=== PATIENT | male | born 1980 | race Caucasian/White ===

== ENCOUNTER 2017-07-09 20:22 | Observation (INO) | payer OTHER ==
--- NOTE | 2017-07-09 20:51 | ED ---
General Adult HPI - General Chief complaint: Psychiatric Symptoms Stated complaint: Mental Health Eval Time Seen by Provider: 07/09/17 20:42 Source: patient, RN notes reviewed Mode of arrival: ambulatory Limitations: no limitations - History of Present Illness Initial comments: 47-year-old male presenting for evaluation of suicidal ideation. Patient has history of bipolar depression, he was recently admitted for suicidal thoughts and depression proximally 3-4 weeks ago. He states he's had worsening thoughts over the past several days including thoughts of shooting himself with a gun. He denies any ingestion today. He does not use drugs or alcohol. He has been taking his medications as prescribed he has additional psychiatric history including panic disorder. He states he has felt quite anxious as well. Denies any physical complaints. - Related Data Allergies Allergy/AdvReac Type Severity Reaction Status Date / Time No Known Allergies Allergy Verified 07/09/17 20:30 Review of Systems ROS Statement: Those systems with pertinent positive or pertinent negative responses have been documented in the HPI. ROS Other: All systems not noted in ROS Statement are negative. Past Medical History Past Medical History: No Reported History History of Any Multi-Drug Resistant Organisms: None Reported Past Surgical History: No Surgical Hx Reported Past Psychological History: Anxiety, Bipolar, Depression, Panic Disorder Smoking Status: Never smoker Past Alcohol Use History: None Reported Past Drug Use History: None Reported General Exam Limitations: no limitations General appearance: alert, in no apparent distress Head exam: Present: atraumatic, normocephalic Eye exam: Present: normal appearance, PERRL ENT exam: Present: normal exam Neck exam: Present: normal inspection. Absent: tenderness, meningismus Respiratory exam: Present: normal lung sounds bilaterally. Absent: respiratory distress, wheezes Cardiovascular Exam: Present: regular rate, normal rhythm GI/Abdominal exam: Present: soft. Absent: distended, tenderness Extremities exam: Present: normal inspection, full ROM Neurological exam: Present: alert, oriented X3, CN II-XII intact. Absent: motor sensory deficit Psychiatric exam: Present: anxious, flat affect, suicidal ideation Skin exam: Present: warm, dry, intact Course Vital Signs 07/09/17 07/09/17 20:26 23:19 Temperature 97.7 F Pulse Rate 113 H 96 Respiratory 20 Rate Blood Pressure 177/103 169/91 O2 Sat by Pulse 96 Oximetry Medical Decision Making - Medical Decision Making Patient is evaluated by EPS, patient does need for inpatient psychiatric treatment, he will require transfer to an outside hospital as he is a resident of [facility]. Laboratory studies are obtained prior to transfer, there is significant abnormalities in his labs including white blood cell count 18.9, platelets of 600. Hypercalcemia of 11.3. Mild elevation in AST and ALT. Urinalysis shows 13 RBCs, chest x-ray negative for focal pneumonia. Leukocytosis and thrombocytosis may be reactive, there is no source of infection identified. Given these significant lab abnormalities patient will be admitted medically, he will be given IV hydration for hypercalcemia, laboratory studies will be repeated in the morning. Patient will have a suicide sitter, and will be evaluated by psychiatry given his suicidal ideation. Patient is agreeable with plan. - Lab Data Result diagrams: 07/09/17 22:29 07/09/17 22:29 Lab Results 07/09/17 07/09/17 07/09/17 Range/Units 22:15 22:29 22:29 WBC 18.9 H (3.8-10.6) k/uL RBC 5.38 (4.30-5.90) m/uL Hgb 15.1 (13.0-17.5) gm/dL Hct 46.5 (39.0-53.0) % MCV 86.4 (80.0-100.0) fL MCH 28.1 (25.0-35.0) pg MCHC 32.5 (31.0-37.0) g/dL RDW 13.3 (11.5-15.5) % Plt Count 600 H (150-450) k/uL Neutrophils % 69 % Lymphocytes % 25 % Monocytes % 4 % Eosinophils % 1 % Basophils % 1 % Neutrophils # 13.0 H (1.3-7.7) k/uL Lymphocytes # 4.8 (1.0-4.8) k/uL Monocytes # 0.7 (0-1.0) k/uL Eosinophils # 0.1 (0-0.7) k/uL Basophils # 0.1 (0-0.2) k/uL Sodium 139 (137-145) mmol/L Potassium 4.6 (3.5-5.1) mmol/L Chloride 99 (98-107) mmol/L Carbon Dioxide 25 (22-30) mmol/L Anion Gap 15 mmol/L BUN 14 (9-20) mg/dL Creatinine 0.90 (0.66-1.25) mg/dL Est GFR (MDRD) Af Amer >60 (>60 ml/min/1.73 sqM) Est GFR (MDRD) Non-Af >60 (>60 ml/min/1.73 sqM) Glucose 199 H (74-99) mg/dL Calcium 11.3 H (8.4-10.2) mg/dL Total Bilirubin 0.9 (0.2-1.3) mg/dL AST 61 H (17-59) U/L ALT 79 H (21-72) U/L Alkaline Phosphatase 97 (38-126) U/L Total Protein 9.0 H (6.3-8.2) g/dL Albumin 5.1 H (3.5-5.0) g/dL Urine Color Yellow Urine Appearance Clear (Clear) Urine pH 6.0 (5.0-8.0) Ur Specific [place] 1.019 (1.001-1.035) Urine Protein 2+ H (Negative) Urine Glucose (UA) Negative (Negative) Urine Ketones Negative (Negative) Urine Blood Small H (Negative) Urine Nitrite Negative (Negative) Urine Bilirubin Negative (Negative) Urine Urobilinogen <2.0 (<2.0) mg/dL Ur Leukocyte Esterase Negative (Negative) Urine RBC 13 H (0-5) /hpf Urine WBC 2 (0-5) /hpf Ur Squamous Epith Cells 1 (0-4) /hpf Hyaline Casts 5 H (0-2) /lpf Urine Mucus Rare H (None) /hpf Urine Opiates Screen Not Detected (NotDetected) Ur Oxycodone Screen Not Detected (NotDetected) Urine Methadone Screen Not Detected (NotDetected) Ur Propoxyphene Screen Not Detected (NotDetected) Ur Barbiturates Screen Not Detected (NotDetected) U Tricyclic Antidepress Not Detected (NotDetected) Ur Phencyclidine Scrn Not Detected (NotDetected) Ur Amphetamines Screen Not Detected (NotDetected) U Methamphetamines Scrn Not Detected (NotDetected) U Benzodiazepines Scrn Not Detected (NotDetected) Urine Cocaine Screen Not Detected (NotDetected) U Marijuana (THC) Screen Not Detected (NotDetected) Disposition Clinical Impression: Depression, Suicidal ideation, Leukocytosis, Hypercalcemia Disposition: ADMITTED IP TO THIS [facility] Condition: Stable Referrals: None,Stated [Primary Care Provider] - 1-2 days Decision to Admit Reason: Admit from EC Decision Date: 07/09/17 Decision Time: 23:47
[2017-07-09] MEDS ORDERED: LORazepam 1 MG TAB PO STA (22:19)
[2017-07-09 22:40] LABS: Basophils # (A) 0.1 k/uL (0-0.2); Basophils % (A) 1 %; Eosinophils # (A) 0.1 k/uL (0-0.7); Eosinophils % (A) 1 %; HCT 46.5 % (39.0-53.0); HGB 15.1 gm/dL (13.0-17.5); Lymphocytes # (A) 4.8 k/uL (1.0-4.8); Lymphocytes % (A) 25 %; MCH 28.1 pg (25.0-35.0); MCHC 32.5 g/dL (31.0-37.0); MCV 86.4 fL (80.0-100.0); Monocytes # (A) 0.7 k/uL (0-1.0); Monocytes % (A) 4 %; Neutrophils % (A) 69 %; Platelet Count 600 k/uL (150-450); RBC 5.38 m/uL (4.30-5.90); RDW 13.3 % (11.5-15.5); WBC 18.9 k/uL (3.8-10.6)
[2017-07-09 22:42] LABS: Appearance,Urine Clear (Clear); Bilirubin,Urine Negative (Negative); Blood,Urine Small (Negative); Color,Urine Yellow; Glucose,Urine (UA) Negative (Negative); Hyaline Casts,Urine 5 /lpf (0-2); Ketones,Urine Negative (Negative); Leukocyte Esterase,Urine Negative (Negative); Mucus,Urine Rare /hpf; Protein,Urine 2+ (Negative); RBC,Urine 13 /hpf (0-5); Specific Gravity,Urine 1.019 (1.001-1.035); Squamous Epithelial Cell,Urine 1 /hpf (0-4); Urobilinogen,Urine <2.0 mg/dL (<2.0); WBC,Urine 2 /hpf (0-5)
[2017-07-09 22:46] LABS: Amphetamine Screen,Urine Not Detected (NotDetected); Barbiturate Screen,Urine Not Detected (NotDetected); Benzodiazepines Screen,Urine Not Detected (NotDetected); Cocaine Screen,Urine Not Detected (NotDetected); Methadone Screen, Urine Not Detected (NotDetected); Opiate Screen,Urine Not Detected (NotDetected); Oxycodone Screen, Urine Not Detected (NotDetected); Phencyclidine Screen,Urine Not Detected (NotDetected); Tricyclic Antidepressant,Urine Not Detected (NotDetected); Urn Cannabinoid Scrn Not Detected (NotDetected)
[2017-07-09 22:52] LABS: ALT 79 U/L (21-72); AST 61 U/L (17-59); Albumin 5.1 g/dL (3.5-5.0); Alkaline Phosphatase 97 U/L (38-126); Anion Gap 15 mmol/L; Blood Urea Nitrogen 14 mg/dL (9-20); Calcium 11.3 mg/dL (8.4-10.2); Carbon Dioxide 25 mmol/L (22-30); Chloride 99 mmol/L (98-107); Glucose 199 mg/dL (74-99); Potassium 4.6 mmol/L (3.5-5.1); Sodium 139 mmol/L (137-145); Total Bilirubin 0.9 mg/dL (0.2-1.3)
--- NOTE | 2017-07-09 23:40 | XR ---
EXAMINATION TYPE: XR chest 2V DATE OF EXAM: 07/09/2017 COMPARISON: NONE HISTORY: Altered mental status TECHNIQUE: Frontal and lateral views of the chest are obtained. FINDINGS: Heart and mediastinum are normal. Lungs are clear. Diaphragm is normal. Bony thorax is int act. Pulmonary vascularity is normal. IMPRESSION: Normal chest
[2017-07-09] MEDS ORDERED: NALOXONE 0.4 MG/ML 1 ML VIAL IV PRN (23:48)
[2017-07-09] MEDS ORDERED: IBUPROFEN 400 MG TAB PO PRN (23:48)
[2017-07-10] MEDS: SODIUM CHLORIDE 0.9% 1,000 ML IV SCH ×3 (00:09→20:05)
[2017-07-10 01:19] LABS: Glucose,Whole Blood 168 mg/dL (75-99)
[2017-07-10 01:31] VITALS: BMI 43.4
[2017-07-10 07:15] LABS: Basophils # (A) 0.1 k/uL (0-0.2); Basophils % (A) 1 %; Eosinophils # (A) 0.2 k/uL (0-0.7); Eosinophils % (A) 2 %; HCT 44.3 % (39.0-53.0); HGB 14.2 gm/dL (13.0-17.5); Lymphocytes # (A) 4.6 k/uL (1.0-4.8); Lymphocytes % (A) 35 %; MCH 27.5 pg (25.0-35.0); MCV 86.1 fL (80.0-100.0); Mean Platelet Volume 5.9; Monocytes # (A) 0.6 k/uL (0-1.0); Monocytes % (A) 5 %; Neutrophils # (A) 7.3 k/uL (1.3-7.7); Neutrophils % (A) 56 %; Platelet Count 399 k/uL (150-450); RBC 5.15 m/uL (4.30-5.90); RDW 13.1 % (11.5-15.5); WBC 13.1 k/uL (3.8-10.6)
[2017-07-10 07:34] LABS: ALT 66 U/L (21-72); AST 53 U/L (17-59); Albumin 4.1 g/dL (3.5-5.0); Alkaline Phosphatase 76 U/L (38-126); Anion Gap 13 mmol/L; Blood Urea Nitrogen 15 mg/dL (9-20); Calcium 9.9 mg/dL (8.4-10.2); Carbon Dioxide 27 mmol/L (22-30); Chloride 100 mmol/L (98-107); Glucose 182 mg/dL (74-99); Potassium 4.3 mmol/L (3.5-5.1); Sodium 140 mmol/L (137-145); Total Bilirubin 0.7 mg/dL (0.2-1.3); Total Protein 7.4 g/dL (6.3-8.2)
[2017-07-10 08:49] VITALS: RESP 18
[2017-07-10] MEDS: LORazepam 2 MG/ML INJ IV PRN ×2 (13:44→19:08)
[2017-07-10 15:26] VITALS: TEMP 98.7
--- NOTE | 2017-07-10 18:40 | HP ---
HISTORY AND PHYSICAL HISTORY AND PHYSICAL AND DISCHARGE SUMMARY: CHIEF COMPLAINTS: Suicidal ideations. HISTORY OF PRESENT ILLNESS: This 37-year-old gentleman with past history of hypertension, diabetes mellitus, anxiety, bipolar, depression being followed by primary physician was visiting [facility] with friends and the patient apparently had suicidal ideations and was admitted for evaluation and treatment. On admission the patient was noted to have multiple abnormalities including elevated WBCs and hypercalcemia. The patient was probably dehydrated and after hydration the patient is improving significantly. There is no history of fever, rigors. No headache, loss of consciousness, chest pain, palpitations, hematochezia or melena at this time. PAST MEDICAL HISTORY: Diabetes, hypertension, history of anxiety, bipolar depression. MEDICATIONS: Prior to admission include Lamictal 70 mg p.o. b.i.d., Lexapro 10 mg p.o. daily, Abilify 20 mg p.o. daily. ALLERGIES: None. FAMILY HISTORY: No history of heart disease or strokes in the family. SOCIAL HISTORY: Previous history of smoking. No history of current smoking or alcohol intake. REVIEW OF SYSTEMS: ENT: No diminished hearing or vision. CARDIOVASCULAR: As mentioned earlier. RESPIRATORY: As mentioned earlier. GI: As mentioned earlier. : No dysuria. NERVOUS SYSTEM: As mentioned earlier. ALLERGY/IMMUNOLOGY: No asthma or hayfever. MUSCULOSKELETAL: As mentioned earlier. HEMATOLOGY: No history of anemia. ENDOCRINE: History of diabetes. CONSTITUTIONAL: As mentioned earlier. DERMATOLOGY: Negative. RHEUMATOLOGY: Negative. PSYCHIATRY: As mentioned earlier. PHYSICAL EXAMINATION: alert and oriented x3. Pulse 101, blood pressure 100/84, respiration 18, temperature 98.2, pulse ox 94% room air. HEENT: Conjunctivae normal. Oral mucosa moist. NECK: No jugular venous distention. No carotid bruit. No lymph node enlargement. CARDIOVASCULAR: S1, S2. No S3, no S4. RESPIRATORY: Breath sounds diminished in the bases. No rhonchi, no crackles. ABDOMEN: Soft, nontender. No mass palpable. LEGS: No edema, no swelling. NERVOUS SYSTEM: Higher functions as mentioned. Cranial nerves II through XII grossly intact. No focal motor deficits. LYMPHATICS: No lymphadenopathy in the neck, axillae, groin. SKIN: No ulcer, rash, bleeding. LABS: WBC 18.9, 13.1. Other labs are noted as earlier. Glucose 182. ASSESSMENT: 1. Depression with suicidal ideations. 2. Possible dehydration present on admission. 3. Increased WBC, possibly reactive. 4. Hypercalcemia secondary to dehydration, improved. 5. Increased AST and ALT. 6. Hypertension. 7. Diabetes mellitus type 2. 8. History of anxiety, bipolar depression, panic disorder. 9. Remote history of nicotine dependence. 10.Obesity with body mass of 43.5. RECOMMENDATIONS AND DISCUSSION: This 37-year-old gentleman who presented with multiple complex medical issues, at this time I recommend to continue current management and symptomatic treatment. Otherwise I would recommend resume the home medications. Psychiatry consultation and inpatient psych transfer. Repeat labs. We will follow the patient closely and prognosis guarded. Discussed with the patient who understands. MMALENL / IJN: [id number] /
[2017-07-10] MEDS ORDERED: hydrALAZINE HCL 20 MG/ML 1 ML VIAL IVP PRN (18:46)
[2017-07-10] MEDS ORDERED: cloNIDine HCL 0.1 MG TAB PO PRN (18:50)
[2017-07-10 20:28] LABS: Glucose,Whole Blood 191 mg/dL (75-99)
[2017-07-10 20:37] VITALS: BP 141/69; PULSE 89
[2017-07-10] MEDS ORDERED: cloNIDine HCL 0.1 MG TAB PO SCH (21:00)
[2017-07-10] MEDS ORDERED: INSULIN ASPART 100 UNIT/ML 1 ML 10 ML VIAL SQ SCH (21:00)
--- NOTE | 2017-07-10 23:28 | CONS ---
CONSULTATION CONSULT DATE: July 10, 2017. REASON FOR CONSULTATION: Suicidal ideation. IDENTIFYING DATA AND HISTORY OF PRESENT ILLNESS: The patient is a 37-year-old white single male on Social Security Disability for the last couple of years, has been living on his own, presented to the emergency room for suicidal ideation. The patient has history of bipolar depression and anxiety disorder for at least 20 years. He stated that he was recently discharged 2 or 3 weeks ago from [facility], but he does not feel that he is getting better. The patient stated that over the past couple of days, he has been struggling with suicidal ideation with a plan of shooting himself with a gun. He denied any psychotic features. According to him, he was discharged from [facility] on Abilify, Lexapro and Lamictal; however, he is not aware about what is it the dose and how often he has to take it. The patient also stated that he has been having panic attack and anxiety most of his life since her early teenage. Regarding past psychiatric history, he reports at least 10 inpatient psych hospitalizations. The 1st admission was at age 14 or 15 and the last one was 2 or 3 weeks ago. He was diagnosed with bipolar depression and panic attack. According to him, he was on lithium for more than 4 or 5 years and it was very effective. However, they discontinued lithium and put him on Abilify. He denied having any side effects from the lithium. There is no previous psychotic symptom. There is no previous suicidal attempt, but it seems that he has chronic suicidal ideation for at least 12 years. MEDICAL HISTORY: There is abnormality in his lab, including the white blood cell count is 18.9, platelets 600. Calcium is 11.3. Mild elevation in his liver enzyme. Urinalysis shows red blood cells. Chest x-ray is negative. SUBSTANCE ABUSE HISTORY: Patient denied any illicit drug history. Family history of psychiatric illness. Sister has a diagnosis of bipolar disorder. Also a couple of family members on his mother's side diagnosed with schizoaffective versus bipolar disorder. LEGAL HISTORY: He denied. SOCIAL HISTORY: The patient has 5 brothers and 6 sisters. He graduated from high school. He used to work in construction. He has been on disability for mental illness for at least a couple of years. He is his own guardian and he is living on his own. He never . He does not have any children. MENTAL STATUS: Appearance and attitude: The patient is dressed in hospital gown. Poor grooming, overweight, not shaved. He did make good eye contact. Behavior: There is no psychomotor agitation. Speech and language: Speech is normal in volume and rate and coherent. Thought process is tangential, but there is no looseness of association. Thought content: He denied any auditory or visual hallucination, but he stated that he is still feeling suicidal with a plan to shoot himself with a gun. Cognitive function: Patient was alert, oriented to person, today's date, location, mood and affect. Stated mood, "anxious and depressed." Affect is constricted. Insight and judgment are very limited. DIAGNOSES: 1. Bipolar disorder, depressed, without psychotic features. 2. History of panic attack without agoraphobia. PLAN: We do recommend to transfer the patient to the mental health unit. The patient did agree to sign himself in on a voluntary basis to resolve his suicidal ideation and stabilize his medication. MMODL / IJN: [id number] /
== END 2017-07-10 21:01 ==
LOC: EC 20:22 → 5MS5E 23:48
PROVIDERS: ADMIT Hospitalist; ATTEND Hospitalist
DX: F31.9 Bipolar disorder, unspecified (principal); R45.851 Suicidal ideations; D72.829 Elevated white blood cell count, unspecified; E83.52 Hypercalcemia; I10 Essential (primary) hypertension; E11.9 Type 2 diabetes mellitus without complications; F41.9 Anxiety disorder, unspecified; F41.0 Panic disorder [episodic paroxysmal anxiety]; E66.9 Obesity, unspecified; Z68.41 Body mass index [BMI] 40.0-44.9, adult; Z87.891 Personal history of nicotine dependence; R74.0 Nonspecific elevation of levels of transaminase and lactic acid dehydrogenase [LDH]; D47.3 Essential (hemorrhagic) thrombocythemia; Z79.899 Other long term (current) drug therapy
CPT/HCPCS: 99285; 96376; 96374; 96375; 82075; 36415; 80053 ×2; 83735; 85025 ×2; 81001; 80306; 71046; G0378 ×2; J2060; J0360

== ENCOUNTER 2017-07-10 19:06 | Inpatient (IN) | payer MEDICAID, OTHER ==
[2017-07-10] MEDS ORDERED: MAG HYDROX/AL HYDROX/SIMETH 30 ML CUP PO PRN (21:10)
[2017-07-10] MEDS ORDERED: MAGNESIUM HYDROXIDE 2,400 MG/10 ML CUP PO PRN (21:10)
[2017-07-10] MEDS ORDERED: NICOTINE 14MG/24HR PATCH TRANSDERM SCH (21:15)
[2017-07-10] MEDS ORDERED: IBUPROFEN 400 MG TAB PO PRN (21:16)
[2017-07-10] MEDS ORDERED: cloNIDine HCL 0.1 MG TAB PO PRN (21:21)
[2017-07-10] MEDS: hydrOXYzine PAMOATE 25 MG CAP PO PRN (22:50)
[2017-07-10] MEDS: ACETAMINOPHEN TAB 325 MG TAB PO PRN (23:34)
[2017-07-11 07:18] LABS: Glucose,Whole Blood 151 mg/dL (75-99)
[2017-07-11] MEDS: INSULIN ASPART 100 UNIT/ML 1 ML 10 ML VIAL SQ SCH ×4 (08:29→20:22)
[2017-07-11] MEDS: cloNIDine HCL 0.1 MG TAB PO SCH ×2 (08:29→20:20)
[2017-07-11] MEDS: lamoTRIgine 25 MG TAB PO SCH ×2 (08:29→20:18)
[2017-07-11] MEDS: ESCITALOPRAM 10 MG TAB PO SCH (08:29)
[2017-07-11] MEDS: LORazepam 1 MG TAB PO PRN ×2 (08:29→16:47)
[2017-07-11 09:19] LABS: Albumin 4.2 g/dL (3.5-5.0); Bilirubin, Delta 0.4 mg/dL (0.0-0.2); Bilirubin,Unconjugated 0.5 mg/dL (0.0-1.1); Total Bilirubin 0.9 mg/dL (0.2-1.3); Total Protein 7.4 g/dL (6.3-8.2)
--- NOTE | 2017-07-11 10:15 | HP ---
HISTORY AND PHYSICAL DATE OF SERVICE: July 11, 2017 Please refer to my consultation report as I saw the patient on the medical floor. IDENTIFYING DATA AND HISTORY OF PRESENT ILLNESS: The patient is a 47 -year-old male in living on his own and he is on social security income for the last couple of years. Presented to the emergency room with depression and suicidal ideation. The patient stated that he has been depressed for 3- 4 weeks, but it has been getting worse over the last couple of days and he was having suicidal plan to shoot himself with a gun. As his labs were abnormal he was admitted to the medical unit to stabilize him medically. Today when I saw the patient, he stated that he is still feeling tired and fatigued, hopeless, helpless. No ambition or motivation. He endorses poor concentration, suicidal ideation with plan to shoot himself if he will be discharged from the hospital. He denies any psychotic features. He denied any manic features. His current psychotropic medication with Abilify 20 mg daily. Lamictal 75 mg twice a day. Lexapro 10 mg daily. PAST PSYCHIATRIC HISTORY: He did report at least 10 inpatient psychiatric hospitalizations. Last hospitalization was just 2 weeks ago at [facility]. There is no suicide attempts. However, he did state he has been having chronic suicidal ideation since early teens. SUBSTANCE ABUSE HISTORY: He denied any illicit drug use. FAMILY HISTORY: Of psychiatric illness: Sister diagnosed with bipolar. Couple of family members on his mother's side, diagnosed with schizoaffective disorder. MEDICAL HISTORY: Status post dehydration, hypertension, diabetes type 2, obesity, increased liver enzyme. SOCIAL HISTORY: The patient is living on his own. He is his own guardian. He is on social security disability. Never . No children. MENTAL STATUS EXAMINATION: Patient is morbidly obese, male, wearing hospital gown. Poor grooming, poor hygiene, disheveled and unkept, avoiding eye contact. Speech is limited in productivity. His thought process is tangential but there is no loose association. He denied any psychotic features, but he stated that he has been severely depressed and suicidal with specific plan. The patient is alert and oriented to person, location and today date. Stated mood "just tired". Affect is constricted. Insight and judgment are limited. Intellectual function is below average. DIAGNOSES: 1. Bipolar disorder, depressed, severe without psychotic feature. 2. History of panic attack without agoraphobia. PLAN: The patient was admitted to the mental health unit for safety, I will restart him back on his psychotropic medication, Abilify, Lexapro and Lamictal. The patient will participate in group therapy as tolerated. restuarant crew worker to assist in collateral information and aftercare. We will monitor his vital signs and his blood sugar. Estimated length of stay is 3-4 days. MMALENL / JORGEN: [id number] /
[2017-07-11] MEDS: hydrOXYzine PAMOATE 25 MG CAP PO PRN ×2 (12:02→20:20)
[2017-07-11 12:33] LABS: Glucose,Whole Blood 203 mg/dL (75-99)
[2017-07-11 17:12] LABS: Glucose,Whole Blood 138 mg/dL (75-99)
[2017-07-11 17:54] LABS: Hemoglobin A1C 8.1 % (4.0-6.0)
[2017-07-11 19:56] LABS: Glucose,Whole Blood 192 mg/dL (75-99)
--- NOTE | 2017-07-11 21:44 | CONS ---
CONSULTATION DATE OF SERVICE: 07/11/2017. IDENTIFYING DATA: The patient is seen on the psych unit. REASON FOR CONSULTATION: Medical management, history of diabetes, hypertension. HISTORY OF PRESENT ILLNESS: The patient is a 37-year-old male patient who is admitted to the psych unit for bipolar depression without psychotic features and panic disorder. PAST MEDICAL HISTORY: The patient has past medical history that is significant for history of type 2 diabetes, hypertension, history of obesity, increased liver enzymes. PAST SURGICAL HISTORY: Not significant. SOCIAL HISTORY: Patient has no history of illicit drug abuse. FAMILY HISTORY: Significant for bipolar disorder in sister. REVIEW OF SYSTEMS: CONSTITUTIONAL: The patient denies fevers, chills. HEENT: No deafness or vision loss. RESPIRATORY: No shortness of breath or cough. CARDIOVASCULAR: No chest pain or palpitations. ABDOMEN: No nausea, vomiting, diarrhea. GENITOURINARY: No dysuria, no hematuria. EXTREMITIES: No muscle or joint deformities. NEUROLOGIC EXAMINATION: No dizziness, lightheadedness, or any headaches. PHYSICAL EXAMINATION: Patient is alert but is sleepy. Claims that he had just fallen asleep. VITAL SIGNS: Temperature 98.6, pulse 90, respiration 18, blood pressure 165/84, O2 saturation fair. HEENT: Atraumatic, normocephalic. Pupils equal and react to light. Extraocular movements intact. Buccal mucosa is fair. NECK: Supple, no goiter or lymphadenopathy. JVD is negative. No carotid bruit heard. LUNGS: Clear to auscultate. No rales, rhonchi, or wheezes. HEART: Regular rate and rhythm without any murmurs or gallop rhythm. ABDOMEN: Soft, nontender, nondistended. Bowel sounds positive. EXTREMITIES: No edema, clubbing or cyanosis. Pulses are palpable 2+. NEUROLOGIC: The patient is awake, alert and oriented. No gross motor or sensory deficit. SKIN: Warm, dry and intact. LYMPHATICS: No enlarged lymph nodes in cervical or axillary area. LAB: Bilirubin 0.4, AST 74, triglycerides 196, ALT of 110. TSH 1.76, blood glucose 203. ASSESSMENT: 1. Uncontrolled diabetes. 2. Hypertension. 3. Mild transaminitis. PLAN: Continue patient on current home medications. Will follow liver enzymes and make recommendations if they remain elevated. Will continue home blood pressure medications. Will monitor blood sugars and make adjustments accordingly. Thank you. MMODL / IJN: [id number] /
[2017-07-12 06:36] LABS: Glucose,Whole Blood 135 mg/dL (75-99)
[2017-07-12] MEDS: INSULIN ASPART 100 UNIT/ML 1 ML 10 ML VIAL SQ SCH ×4 (07:39→20:16)
[2017-07-12] MEDS: lamoTRIgine 25 MG TAB PO SCH ×2 (08:58→20:08)
[2017-07-12] MEDS: cloNIDine HCL 0.1 MG TAB PO SCH ×2 (08:58→20:09)
[2017-07-12] MEDS: ESCITALOPRAM 10 MG TAB PO SCH (08:58)
[2017-07-12] MEDS: LORazepam 1 MG TAB PO PRN (08:59)
[2017-07-12 12:52] LABS: Glucose,Whole Blood 160 mg/dL (75-99)
--- NOTE | 2017-07-12 13:45 | P.PN ---
Progress Note - Text Progress Note Date: 07/12/17 Pt has been too sleepy and I could not see him this AM. Has a long history of Bipolar disorder and was admitted here because of Depression and Suicide thoughts. Currently, he is not feeling suicidal. But, he is not feeling well, gets sleepy and feels his current meds are not working. He is on Abilify, Lexapro ans Lamictal. He was doing better on [place] and seroquel in the past and agreed for meds change. He was counseled about the FDA recommendations for Bipolar disorder. Has high lipids, FBS with high HgBA1C and normal renal function. Currently, he is sleepy and sluggish. Speech is spontaneous and goal directed, Mood is dull and affect is constricted in range. Denies hallucinations, delusional thinking, suicide and homicide thoughts. Sensorium is clear. A: Bipolar disorder, most recent episode, depression, moderate to severe. P: Change lexapro and Abilify to lithium and seroquel. Continue Lamictal. Check [place] Level etc later.
[2017-07-12] MEDS: LITHIUM CARBONATE ER 450 MG TABLET.ER PO SCH ×2 (16:40→23:14)
[2017-07-12 17:44] LABS: Glucose,Whole Blood 129 mg/dL (75-99)
[2017-07-12] MEDS: QUEtiapine 200 MG TAB PO SCH (20:08)
[2017-07-12 20:09] LABS: Glucose,Whole Blood 206 mg/dL (75-99)
[2017-07-13 06:35] LABS: Glucose,Whole Blood 135 mg/dL (75-99)
[2017-07-13] MEDS: INSULIN ASPART 100 UNIT/ML 1 ML 10 ML VIAL SQ SCH ×4 (07:32→20:53)
[2017-07-13] MEDS: LITHIUM CARBONATE ER 450 MG TABLET.ER PO SCH ×3 (08:04→23:05)
[2017-07-13] MEDS: lamoTRIgine 25 MG TAB PO SCH ×2 (08:04→20:09)
[2017-07-13] MEDS: cloNIDine HCL 0.1 MG TAB PO SCH ×2 (08:04→20:10)
[2017-07-13 09:19] LABS: Appearance,Urine Clear (Clear); Bilirubin,Urine Negative (Negative); Blood,Urine Negative (Negative); Color,Urine Yellow; Glucose,Urine (UA) Negative (Negative); Ketones,Urine Negative (Negative); Leukocyte Esterase,Urine Negative (Negative); PH, Urine 6.5 (5.0-8.0); Protein,Urine Negative (Negative); Specific Gravity,Urine 1.012 (1.001-1.035); Urobilinogen,Urine <2.0 mg/dL (<2.0)
--- NOTE | 2017-07-13 10:48 | P.PN ---
Progress Note - Text Progress Note Date: 07/13/17 Patient took his lithium last night and this morning and Seroquel last night in addition to Lamictal he is on. He did not have any adverse effects from either lithium or Seroquel. He said he slept well last night. This morning he is still in bed but he responded and talk to me in his room for evaluation. But he did not even respond to my questions or request yesterday morning when I tried to talk to him and so I had to see him in the afternoon. Patient does not attend all his groups and he was encouraged to attend the groups and learn better coping skills. He said he will attend the groups more regularly. This is a white ambulatory male who looks rather unkempt since he is poorly combed and unshaven. He tends to stay in his bed quite often. He does not socialize much. His speech is soft short and goal directed. His mood is dull and affect is rather constricted in range. He denies hallucinations and delusional thinking. He denies suicidal and homicidal ideas. But his energy seems to be quite low and he isolates himself. He is fairly well oriented with adequate memory concentration etc. Plan: Continue Seroquel 200 mg at bedtime, lithium 450 mg twice a day, Lamictal 75 mg twice a day. Continue groups and other therapy sessions. He is not ready to be discharged since he still isolates himself, does not attend to his basic needs and is still unstable.
[2017-07-13 12:40] LABS: Glucose,Whole Blood 154 mg/dL (75-99)
[2017-07-13 17:46] LABS: Glucose,Whole Blood 139 mg/dL (75-99)
[2017-07-13 19:49] LABS: Glucose,Whole Blood 196 mg/dL (75-99)
[2017-07-13] MEDS: QUEtiapine 200 MG TAB PO SCH (20:10)
[2017-07-14 06:10] LABS: Glucose,Whole Blood 145 mg/dL (75-99)
[2017-07-14] MEDS: INSULIN ASPART 100 UNIT/ML 1 ML 10 ML VIAL SQ SCH ×4 (07:42→20:16)
[2017-07-14] MEDS: cloNIDine HCL 0.1 MG TAB PO SCH ×2 (08:08→20:06)
[2017-07-14] MEDS: lamoTRIgine 25 MG TAB PO SCH ×2 (08:08→20:06)
[2017-07-14] MEDS: LITHIUM CARBONATE ER 450 MG TABLET.ER PO SCH ×3 (08:08→23:13)
--- NOTE | 2017-07-14 11:55 | P.PN ---
Progress Note - Text Progress Note Date: 07/14/17 Patient was sleeping when I called him for examination last 3 times. But he came into the office later on when I returned to the office. He says that he is not a morning person and usually tends to sleep until known or about 1:00. He does not socialize much except in the afternoon when he goes to the groups. He has been taking his lithium and Seroquel and does not have any adverse effects so far. He plans on returning home and his sister apparently will pick him up. He said he has about 4 shotguns and one or 2 handguns loves to [place] and fish with his brother etc. he continues to deny suicidal and homicidal ideas he is unshaven and looks rather unkempt. His speech is spontaneous and fluent and goal directed. But it is as short as possible. His mood is rather dull and affect is somewhat constricted in range. He denies hallucinations and delusional thinking. He denies suicidal and homicidal ideas. He is well oriented with adequate memory. Plan: Continue lithium 450 mg twice a day and Seroquel 200 mg at bedtime. Continue counseling and groups. sewage disposal worker has already contacted patient's sister regarding discharge plan. Continue hospitalization to make sure he is able to take care office basic needs.
[2017-07-14 12:24] LABS: Glucose,Whole Blood 150 mg/dL (75-99)
[2017-07-14 17:04] LABS: Glucose,Whole Blood 121 mg/dL (75-99)
[2017-07-14] MEDS: FLUTICASONE 50MCG/SPRAY NASAL 16GM EA NOSTRIL PRN (17:43)
[2017-07-14] MEDS: ACETAMINOPHEN TAB 325 MG TAB PO PRN (18:17)
[2017-07-14 19:59] LABS: Glucose,Whole Blood 173 mg/dL (75-99)
[2017-07-14] MEDS: QUEtiapine 200 MG TAB PO SCH (20:06)
[2017-07-15 06:24] LABS: Glucose,Whole Blood 145 mg/dL (75-99)
[2017-07-15] MEDS: LITHIUM CARBONATE ER 450 MG TABLET.ER PO SCH ×3 (08:00→23:04)
[2017-07-15] MEDS: lamoTRIgine 25 MG TAB PO SCH ×2 (08:00→20:02)
[2017-07-15] MEDS: cloNIDine HCL 0.1 MG TAB PO SCH ×2 (08:00→20:03)
[2017-07-15] MEDS: INSULIN ASPART 100 UNIT/ML 1 ML 10 ML VIAL SQ SCH ×4 (08:02→20:04)
[2017-07-15] MEDS: IBUPROFEN 400 MG TAB PO PRN (09:13)
--- NOTE | 2017-07-15 11:55 | P.PN ---
Progress Note - Text Progress Note Date: 07/15/17 Patient was seen for a follow up examination. He is alert and up and about today. He said he is a little anxious about going home. But he does not have any problem with that. Initially he was concerned about having a family session but eventually he settled down and has agreed to it. He says his gout is bothering him the great toe is hurting and would like to take something for it. He was counseled and he agreed to take colchicine. He takes his medicines attends groups sometimes and gets along okay with other people. Does not have any adverse effects. He is polite and cooperative. He does not show any psychomotor agitation or retardation. He is dressed in hospital gowns today stating that they are more comfortable for him. He continues to be unshaven and he says the hospital razors are dull and middle shaved or trim his pichardo when he gets home. His speech is spontaneous relevant and goal-directed. Mood is euthymic and affect is appropriate. He denies hallucinations, delusional thinking, suicidal and homicidal ideas. He is well oriented with adequate memory concentration etc. Plan: Continue Seroquel lithium and Lamictal. Start on colchicine for gout. Consider discharging him tomorrow.
[2017-07-15] MEDS: COLCHICINE 0.6 MG TAB PO SCH ×2 (12:03→20:02)
[2017-07-15 12:38] LABS: Glucose,Whole Blood 138 mg/dL (75-99)
[2017-07-15] MEDS ORDERED: QUEtiapine 100 MG TAB PO STA (13:45)
--- NOTE | 2017-07-15 13:51 | P.PN ---
Progress Note - Text Progress Note Date: 07/15/17 Patient came back to my office crying and tearful. He said he is too nervous and feels he is falling apart. He said he does not have any when necessary medication since his Ativan was discontinued as he was sleeping a lot. He feels he will deteriorate further if he goes home tomorrow. He was counseled and he agreed to get his Seroquel increased to 400 mg at bedtime and take a stat dose of Seroquel 100 mg now to help him to feel better. Orders were entered for him to get the updated medications.
[2017-07-15 14:30] VITALS: BMI 43.2
[2017-07-15 17:41] LABS: Glucose,Whole Blood 133 mg/dL (75-99)
[2017-07-15] MEDS: FLUTICASONE 50MCG/SPRAY NASAL 16GM EA NOSTRIL PRN (17:54)
[2017-07-15 19:54] LABS: Glucose,Whole Blood 139 mg/dL (75-99)
[2017-07-15] MEDS ORDERED: QUEtiapine 400 MG TAB PO SCH (21:00)
[2017-07-16 06:43] LABS: Glucose,Whole Blood 127 mg/dL (75-99)
--- NOTE | 2017-07-16 09:08 | P.PN ---
Progress Note - Text Progress Note Date: 07/16/17 Patient was seen for a follow-up examination. He was in bed when I called him. Prior to that he went and got his morning medications went for breakfast etc. He tends to stay in bed in the morning time and becomes active in the afternoon and evening. As noted earlier he had told me that he is not a morning person. He said extra medications he got yesterday afternoon and increased dose of Seroquel last night had helped him quite a bit. He did not have any adverse effects from increased dose of Seroquel. He was counseled and he agreed to. His Seroquel increased to 600 mg at bedtime today. This is a white rather obese ambulatory male who looks rather unkempt. He is polite and cooperative. He does not show any psychomotor agitation or retardation. His speech is fairly spontaneous and goal-directed. But it is rather short. His mood is dull to euthymic and affect is somewhat constricted in range. He denies current suicidal and homicidal ideas. He also denies hallucinations and delusional thinking. He is well oriented with good memory and concentration general fund of knowledge etc. Plan: Increase Seroquel to 600 mg at bedtime, continue lithium 450 mg twice a day and Lamictal 75 mg twice a day. Continue other medications for physical problems. Consider discharging him on Wednesday if he continues to do better.
[2017-07-16] MEDS: INSULIN ASPART 100 UNIT/ML 1 ML 10 ML VIAL SQ SCH ×4 (09:14→20:02)
[2017-07-16] MEDS: LITHIUM CARBONATE ER 450 MG TABLET.ER PO SCH ×3 (09:37→23:13)
[2017-07-16] MEDS: lamoTRIgine 25 MG TAB PO SCH ×2 (09:37→20:03)
[2017-07-16] MEDS: COLCHICINE 0.6 MG TAB PO SCH ×2 (09:37→20:03)
[2017-07-16] MEDS: cloNIDine HCL 0.1 MG TAB PO SCH ×2 (09:37→20:03)
[2017-07-16 12:55] LABS: Glucose,Whole Blood 174 mg/dL (75-99)
[2017-07-16] MEDS ORDERED: QUEtiapine 100 MG TAB PO STA (13:38)
[2017-07-16 17:35] LABS: Glucose,Whole Blood 145 mg/dL (75-99)
[2017-07-16 19:54] LABS: Glucose,Whole Blood 140 mg/dL (75-99)
[2017-07-16] MEDS: QUEtiapine 200 MG TAB PO SCH (20:03)
[2017-07-17 06:24] LABS: Glucose,Whole Blood 139 mg/dL (75-99)
[2017-07-17 06:44] VITALS: RESP 16
[2017-07-17] MEDS: LITHIUM CARBONATE ER 450 MG TABLET.ER PO SCH ×3 (08:40→23:05)
[2017-07-17] MEDS: cloNIDine HCL 0.1 MG TAB PO SCH ×2 (08:40→20:44)
[2017-07-17] MEDS: COLCHICINE 0.6 MG TAB PO SCH ×2 (08:40→20:43)
[2017-07-17] MEDS: lamoTRIgine 25 MG TAB PO SCH ×2 (08:40→20:44)
[2017-07-17] MEDS: INSULIN ASPART 100 UNIT/ML 1 ML 10 ML VIAL SQ SCH ×4 (08:41→21:27)
--- NOTE | 2017-07-17 11:35 | P.PN ---
Progress Note - Text Progress Note Date: 07/17/17 Interval History: Patient is a 37-year-old male who is being seen [place] [facility] [place]. Patient reports that with the increase in his Seroquel his sleep has improved and he is feeling less nervous and jumpy. He reports that he has been feeling less depressed and is no longer having any suicidal ideation. He reports that he is attempting to attend groups and activities and was in group this morning when I approached him. Patient reported no side effects from the increase in the Seroquel or from his other medications. Patient states his depression is improving. Mental Status: Appearance/Attitude: Patient is a hospital gown and appears slightly disheveled, makes in good eye contact and was cooperative. Behavior: Patient does not display any psychomotor agitation or retardation. Speech/Language: Patient's speech is spontaneous and of normal volume and rhythm and he is coherent. Thought Process: Patient was goal-directed, no circumstantial or tangential. Thought Content: Patient denied auditory or visual hallucinations and no delusions or paranoid ideation were elicited. Patient reports that his sleep is improved with the increase in Seroquel and he states he's feeling less nervous and jumpy. He reports that he is feeling less depressed as well and has been attempting to attend groups and activities. He reports his appetite is good. Patient reported no side effects from the medication. Suicidal/Homicidal Ideation: Patient denies any current suicidal or homicidal ideation. Sensorium/Cognition: Patient is alert and oriented to person, place, and time and his recent and remote memory were grossly intact. Mood/Affect: Patient states his mood is less depressed, he is feeling less nervous and jumpy and his affect is slightly blunted Insight/Judgment: Patient's insight and judgment are fair. Assessment: Patient reports improved sleep with the increase in Seroquel as well as his mood is less depressed and he is feeling less nervous and jumpy. He reports no racing thoughts and no suicidal ideation. Patient states that he is been attempting to attend groups and activities. He reported no complaints of side effects and none were noted on exam. Plan: Patient will continue on Seroquel at 600 mg at bedtime, lithium 450 mg twice a day and Lamictal 75 mg twice a day continues to require hospitalization to further stabilize his mood. A lithium level was ordered for tomorrow morning.
[2017-07-17] MEDS: IBUPROFEN 400 MG TAB PO PRN (11:44)
[2017-07-17 12:42] LABS: Glucose,Whole Blood 143 mg/dL (75-99)
[2017-07-17 17:36] LABS: Glucose,Whole Blood 132 mg/dL (75-99)
[2017-07-17 20:16] LABS: Glucose,Whole Blood 176 mg/dL (75-99)
[2017-07-17] MEDS: QUEtiapine 200 MG TAB PO SCH (20:45)
[2017-07-17] MEDS: FLUTICASONE 50MCG/SPRAY NASAL 16GM EA NOSTRIL PRN (22:26)
[2017-07-18 06:25] LABS: Glucose,Whole Blood 120 mg/dL (75-99)
[2017-07-18] MEDS: LITHIUM CARBONATE ER 450 MG TABLET.ER PO SCH ×3 (08:54→23:07)
[2017-07-18] MEDS: lamoTRIgine 25 MG TAB PO SCH ×2 (08:54→20:13)
[2017-07-18] MEDS: INSULIN ASPART 100 UNIT/ML 1 ML 10 ML VIAL SQ SCH ×4 (08:54→20:42)
[2017-07-18] MEDS: COLCHICINE 0.6 MG TAB PO SCH ×2 (08:54→20:10)
[2017-07-18] MEDS: cloNIDine HCL 0.1 MG TAB PO SCH ×2 (08:54→20:12)
--- NOTE | 2017-07-18 11:02 | P.PN ---
Progress Note - Text Progress Note Date: 07/18/17 Interval History: Patient is a 37-year-old male who was sleeping but easily awakened and came to the interview room. Patient reports that he slept on and off last night, he states his appetite is returning. He states that he is able to sit in groups without feeling restless or get up and walk. Patient states he is able to watch TV for 20 minutes without needing to get up and pace. He states he is not feeling as jumpy or anxious as he was on admission. He reported no side effects from the medication. Mental Status: Appearance/Attitude: Patient appears disheveled, in casual clothing makes good eye contact and was cooperative Behavior: Patient does not display any psychomotor agitation or retardation and states he is feeling less restless and able to sit in groups and watch TV Speech/Language: Patient's speech is spontaneous and of normal volume and rhythm and he is coherent Thought Process: Patient is goal-directed there is no evidence of loose associations or flight of ideas. Thought Content: Patient denies auditory or visual hallucinations no delusions or paranoid ideation or elicited. Patient states he is not having racing thoughts and reports his appetite has improved and he states he is sleeping. Patient states he is no longer feeling as agitated or jumpy as he was on admission. Suicidal/Homicidal Ideation: Patient denies any current suicidal or homicidal ideation. Sensorium/Cognition: Patient is alert and oriented to person, place, and time and his recent and remote memory are grossly intact. Mood/Affect: Patient's mood is euthymic and his affect is appropriate Insight/Judgment: Patient's insight and judgment are fair Assessment: Patient reports he is appetite is improving, that he is not feeling as jumpy and restless as he was and is able to sit in groups and watch TV for about 20 minutes without needing to get up and walk the halls. Patient reports no side effects from the medication and none were noted on exam. Patient's lithium level was 0.9 on a dose of 900 mg per day. Plan: Patient will continue on Seroquel 600 mg at bedtime, lithium 450 mg twice a day and Lamictal 75 mg twice a day to target his mood. Patient states that he is hoping to be discharged early next week.
[2017-07-18 12:43] LABS: Glucose,Whole Blood 149 mg/dL (75-99)
[2017-07-18 18:10] LABS: Glucose,Whole Blood 137 mg/dL (75-99)
[2017-07-18] MEDS: QUEtiapine 200 MG TAB PO SCH (20:13)
[2017-07-18 20:14] LABS: Glucose,Whole Blood 150 mg/dL (75-99)
[2017-07-19 06:27] LABS: Glucose,Whole Blood 126 mg/dL (75-99)
[2017-07-19 06:53] VITALS: TEMP 97.3
[2017-07-19] MEDS: INSULIN ASPART 100 UNIT/ML 1 ML 10 ML VIAL SQ SCH (07:44)
[2017-07-19] MEDS: lamoTRIgine 25 MG TAB PO SCH (08:46)
[2017-07-19] MEDS: COLCHICINE 0.6 MG TAB PO SCH (08:47)
[2017-07-19] MEDS: cloNIDine HCL 0.1 MG TAB PO SCH (08:47)
[2017-07-19] MEDS: LITHIUM CARBONATE ER 450 MG TABLET.ER PO SCH (08:47)
--- NOTE | 2017-07-19 10:18 | P.DS ---
Providers Date of admission: 07/10/17 20:53 Expected date of discharge: 07/19/17 Attending physician: Jp Warren Consults: 07/10/17 21:10 Consult Physician Routine Consulting Provider: Erica Monsalve Consult Reason/Comments: h and p, eval and tx, please blood sugar leve, pt states he takes metformin Do you want consulting provider notified?: Yes Primary care physician: Stated None Hospital Course: Patient had his physical examination psychosocial evaluation in addition to psychiatric evaluation. He was started/continued on Lexapro and Abilify and Lamictal after psychiatric evaluation. Patient used to stay by himself sleep a lot not attending to groups etc. when I saw him on July 12 it was agreed to change his medications since he was not doing well and had done well on lithium and Seroquel in the past. He was started on lithium 450 mg twice a day and Seroquel 200 mg at bedtime and his Lamictal was continued. Patient was scheduled to go home last Wednesday, July 16. But he started to get agitated very emotional and crying etc. on July 15. He was given extra 100 mg of Seroquel on a when necessary basis and his nighttime Seroquel was increased to 400 mg. Seroquel was further increased to 600 mg at bedtime on July 16. He tolerated the medication changes well and had a very good weekend. His mood is stable and is not labile anymore. Continues to deny suicide and homicide ideas. [place] level is 0.9 mEq per liter. His blood sugar level is around 120. He was started on colchicine since he complained of pain secondary to gout of his great toes. He responded well to this treatment and pain subsided. Currently patient is polite and friendly and cooperative. He does not show any psychomotor agitation or retardation. His speech is spontaneous relevant and goal-directed. His mood is euthymic and affect is appropriate. He denies suicidal and homicidal ideas. He denies hallucinations and delusional thinking. He is well oriented with good memory concentration general fund of knowledge etc. His insight and judgment are adequate. Plan: He will be discharged today with a 30 day prescription for his medication. Patient was advised to take his medications as prescribed, not to drink alcohol or use drugs, not to drive or operate machinery if he felt sleepy , sisi C the dietitian and loose some weight and he agreed we these recommendations. Discharge diagnosis: Bipolar 1 disorder most recent episode depressed severe F 31.4 Hypertension. Diabetes mellitus. Gout. Obesity. NKDA. Plan - Discharge Summary Discharge Rx Participant: Yes New Discharge Prescriptions: New cloNIDine HCL [Catapres] 0.1 mg PO BID 30 Days #60 tab Colchicine [Colcrys] 0.6 mg PO BID 30 Days #60 tab Fluticasone Nasal [place] [Flonase Nasal [place]] 2 spray EA NOSTRIL DAILY PRN spr PRN Reason: Allergy Symptoms [place] Carbonate ER [Lithobid] 450 mg PO Q8HR 30 Days #60 tablet.er Mag Hydrox/Al Hydrox/Simeth [Maalox] 30 ml PO Q4HR PRN cup PRN Reason: GI Upset Magnesium Hydroxide [Milk of Magnesia Concentrate] 2,400 mg PO DAILY PRN ml PRN Reason: Constipation QUEtiapine [SEROquel] 600 mg PO HS 30 Days #30 tab Continue Ibuprofen [Motrin] 200 mg PO Q6HR PRN tab PRN Reason: Mild Pain Or Fever > 100.5 lamoTRIgine [LaMICtal] 75 mg PO BID 30 Days #60 tab Discharge Medication List Ibuprofen [Motrin] 200 mg PO Q6HR PRN tab 07/10/17 [Rx] Colchicine [Colcrys] 0.6 mg PO BID 30 Days #60 tab 07/19/17 [Rx] Fluticasone Nasal [place] [Flonase Nasal [place]] 2 spray EA NOSTRIL DAILY PRN spr 07/19/17 [Rx] [place] Carbonate ER [Lithobid] 450 mg PO Q8HR 30 Days #60 tablet.er 07/19/17 [ Rx] Mag Hydrox/Al Hydrox/Simeth [Maalox] 30 ml PO Q4HR PRN cup 07/19/17 [Rx] Magnesium Hydroxide [Milk of Magnesia Concentrate] 2,400 mg PO DAILY PRN ml 10/01 [Rx] QUEtiapine [SEROquel] 600 mg PO HS 30 Days #30 tab 07/19/17 [Rx] cloNIDine HCL [Catapres] 0.1 mg PO BID 30 Days #60 tab 07/19/17 [Rx] lamoTRIgine [LaMICtal] 75 mg PO BID 30 Days #60 tab 07/19/17 [Rx] Follow up Appointment(s)/Referral(s): Zoie Rincon [Other] - 07/19/17 1:15 pm (Dr Murrell) Patient Instructions/Handouts: Depression (DC), Suicide Prevention for Adults ( DC) Activity/Diet/Wound Care/Special Instructions: Activity and diet as tolerated. Avoid the use of street drugs and alcohol. Remove all firearms from home. Take all medications as prescribed. When you are in need of refills of your medication please contact your medical provider and/ or outpatient psychiatrist to have this done. Please go to scheduled outpatient appointment for aftercare. If symptoms return or become worse you can call the Crisis Line at and/or go to the nearest emergency room for an evaluation. Discharge Disposition: HOME SELF-CARE
[2017-07-19 10:59] VITALS: BP 134/73; PULSE 99
== END 2017-07-19 12:11 | disposition home or self-care (01) | DRG 885 ==
LOC: 3MHU 19:06 → UNDOADMIN 19:06 → 3MHU 20:53
PROVIDERS: ADMIT Psychiatry & Neurology Psychiatry; ATTEND Psychiatry & Neurology Psychiatry
DX: F31.4 Bipolar disorder, current episode depressed, severe, without psychotic features (principal); R45.851 Suicidal ideations; E66.01 Morbid (severe) obesity due to excess calories; E11.9 Type 2 diabetes mellitus without complications; F41.0 Panic disorder [episodic paroxysmal anxiety]; I10 Essential (primary) hypertension; M10.9 Gout, unspecified; R74.0 Nonspecific elevation of levels of transaminase and lactic acid dehydrogenase [LDH]; Z68.41 Body mass index [BMI] 40.0-44.9, adult; Z79.899 Other long term (current) drug therapy; Z82.49 Family history of ischemic heart disease and other diseases of the circulatory system
CPT/HCPCS: 80061; 80076; 80178; 81003; 83036; 84443

== ENCOUNTER 2022-11-16 13:10 | Emergency (ER) | payer OTHER ==
[2022-11-16] MEDS ORDERED: PIPERACILLIN-TAZOBACTAM 3.375 GM in SODIUM CHLORIDE 0.9% 100 ML IVPB STA (13:51)
[2022-11-16] MEDS ORDERED: VANCOMYCIN IV PER PHARMACY 1 EACH MISC MISCELLANE PRN (13:51)
[2022-11-16] MEDS ORDERED: VANCOMYCIN 2,000 MG in SODIUM CHLORIDE 0.9% 500 ML 500 ML IVPB STA (13:54)
[2022-11-16] MEDS ORDERED: SODIUM CHLORIDE 0.9% 1,000 ML IV STA (14:01)
--- NOTE | 2022-11-16 14:02 | ED ---
General Adult HPI - General Chief complaint: Extremity Injury, Lower Stated complaint: L Foot Toe Infection Time Seen by Provider: 11/16/22 13:30 Source: patient Mode of arrival: ambulatory Limitations: no limitations - History of Present Illness Initial comments: Dictation was produced using [employer]OM[employer] dictation software. please excuse any grammatical, word or spelling errors. Chief Complaint: 42-year-old male presents emergency Department with left toe wound, fevers and body aches History of Present Illness: Patient's 42-year-old male he has recent admission to [facility] for left toe wound causing sepsis. Patient last had antibiotics her weeks ago. He is recommended to him that he needed a amputation of the toe however he refused. Patient ended up being discharged. He is in town visiting a friend when all of a sudden he began developing body aches and purulent drainage from the chronic wound to his left great toe. Patient does complain of fever and chills also. The ROS documented in this emergency department record has been reviewed and confirmed by me. Those systems with pertinent positive or negative responses have been documented in the HPI. All other systems are other negative and/or noncontributory. - Related Data Previous Rx's Medication Instructions Recorded Ibuprofen [Motrin] 200 mg PO Q6HR PRN tab 07/10/17 Colchicine [Colcrys] 0.6 mg PO BID 30 Days #60 tab 07/19/17 Fluticasone Nasal [place] [Flonase 2 spray EA NOSTRIL DAILY PRN spr 07/19/17 Nasal [place]] [place] Carbonate ER [Lithobid] 450 mg PO Q8HR 30 Days #60 07/19/17 tablet.er Mag Hydrox/Al Hydrox/Simeth 30 ml PO Q4HR PRN cup 07/19/17 [Maalox] Magnesium Hydroxide [Milk of 2,400 mg PO DAILY PRN ml 07/19/17 Magnesia Concentrate] QUEtiapine [SEROquel] 600 mg PO HS 30 Days #30 tab 07/19/17 cloNIDine HCL [Catapres] 0.1 mg PO BID 30 Days #60 tab 07/19/17 lamoTRIgine [LaMICtal] 75 mg PO BID 30 Days #60 tab 07/19/17 Allergies Allergy/AdvReac Type Severity Reaction Status Date / Time No Known Allergies Allergy Verified 03/01/18 14:30 Review of Systems ROS Statement: Those systems with pertinent positive or pertinent negative responses have been documented in the HPI. ROS Other: All systems not noted in ROS Statement are negative. Past Medical History Past Medical History: Diabetes Mellitus, Hypertension History of Any Multi-Drug Resistant Organisms: None Reported Past Surgical History: No Surgical Hx Reported Additional Past Surgical History / Comment(s): ortho on left leg Past Anesthesia/Blood Transfusion Reactions: No Reported Reaction Past Psychological History: Anxiety, Bipolar, Depression, Panic Disorder Smoking Status: Former smoker Past Alcohol Use History: None Reported Past Drug Use History: None Reported - Past Family History Father Family Medical History: No Reported History General Exam - General Exam Comments Initial Comments: PHYSICAL EXAM: General Impression: Alert and oriented x3, not in acute distress HEENT: Normocephalic atraumatic, extra-ocular movements intact, pupils equal and reactive to light bilaterally, dry mucous membranes Cardiovascular: Heart regular rate and rhythm Chest: Able to complete full sentences, no retractions, no tachypnea Abdomen: abdomen soft, non-tender, non-distended, no organomegaly Musculoskeletal: Pulses present and equal in all extremities, no peripheral edema Motor: no focal deficits noted Neurological: CN II-XII grossly intact, no focal motor or sensory deficits noted Skin: Intact with no visualized rashes Psych: Normal affect and mood Left foot: Multiple ulcers to the mid foot and across the great toe in a lateral plain, there does appear to be purulent drainage and erythema and induration to the left forefoot Limitations: no limitations Course Vital Signs 11/16/22 11/16/22 13:13 15:16 Temperature 99.7 F H 99.2 F Pulse Rate 137 H 113 H Respiratory 18 16 Rate Blood Pressure 144/83 162/85 O2 Sat by Pulse 95 97 Oximetry Medical Decision Making - Medical Decision Making Was pt. sent in by a medical professional or institution (, PA, SPORTS ATHLETIC TRAINER, urgent care, hospital, or snf...) When possible be specific @ -No Did you speak to anyone other than the patient for history (EMS, parent, family, police, friend...)? What history was obtained from this source @ -No Did you review nursing and triage notes (agree or disagree)? Why? @ -I reviewed and agree with nursing and triage notes Were old charts reviewed (outside hosp., previous admission, EMS record, old EKG, old radiological studies, urgent care reports/EKG's, snf records)? Report findings @ -No old charts were reviewed Differential Diagnosis (chest pain, altered mental status, abdominal pain women, abdominal pain men, vaginal bleeding, musculoskeletal, weakness, fever, dysp toi, syncope, headache, dizziness, GI bleed, back pain, seizure, CVA, palpatations, mental health)? @ -Differential Fever: Pneumonia, viral URI, endocarditis, myocarditis, pericarditis, otitis, sinusitis, peritonsillar Abscess, retropharyngeal Abscess, epiglottitis, peritonitis, appendicitis, Charo cystitis, diverticulitis, hepatitis, colitis, UTI, PID, TOA, pyelonephritis, prostatitis, epididymitis, meningitis, encephalitis, pulmonary embolism, CVA, thyroid storm, pancreatitis, adrenal crisis, cavernous sinus thrombosis, this is not meant to be an all-inclusive list. EKG interpreted by me (3pts min.). @ -None done X-rays interpreted by me (1pt min.). @ -None done CT interpreted by me (1pt min.). @ -None done U/S interpreted by me (1pt. min.). @ -None done What testing was considered but not performed or refused? (CT, X-rays, U/S, labs)? Why? @ -None What meds were considered but not given or refused? Why? @ -None Did you discuss the management of the patient with other professionals (professionals i.e. , PA, SPORTS ATHLETIC TRAINER, lab, RT, psych nurse, rn social services, wildlife protector, teacher, protection officer, nurse case management)? Give summary @ -Labs presentation discussed with Dr. Dia for transfer Was smoking cessation discussed for >3mins.? @ -No Was critical care preformed (if so, how long)? @ -No Were there social determinants of health that impacted care today? How? (Homelessness, low income, unemployed, alcoholism, drug addiction, transportation, low edu. Level, literacy, decrease access to med. care, snf, rehab)? @ -No Was there de-escalation of care discussed even if they declined (Discuss DNR or withdrawal of care, Hospice)? DNR status @ -No What co-morbidities impacted this encounter? (DM, HTN, Smoking, COPD, CAD, Cancer, CVA, ARF, Chemo, Hep., AIDS, mental health diagnosis, sleep apnea, morbid obesity)? @ -None Was patient admitted / discharged? Hospital course, mention meds given and route, prescriptions, significant lab abnormalities, going to OR and other pertinent info. @ -42-year-old male presents to the emergency department with worsening wound to the left foot. Vital signs shows low-grade temperature. Patient does have constitutional symptoms. Tachycardic rate is suspicion of sepsis. Leukocytosis 24.4. Coag panel metabolic panel within acceptable limits. Lactic acidosis negative. Patient given broad-spectrum antibiotics. [facility] be transferred to [facility] for continuity of care. Patient will likely need for amputation Undiagnosed new problem with uncertain prognosis? @ -No Drug Therapy requiring intensive monitoring for toxicity (Heparin, Nitro, Insulin, Cardizem)? @ -No Were any procedures done? @ -No Diagnosis/symptom? Acute, or Chronic, or Acute on Chronic? Uncomplicated (wi thout systemic symptoms) or Complicated (systemic symptoms)? @ -1. Wound of the left foot, complicated by sepsis Side effects of treatment? @ -No Exacerbation, Progression, or Severe Exacerbation? @ -No Poses a threat to life or bodily function? How? (Chest pain, [place], [place], pneumonia, PE, COPD, DKA, ARF, appy, cholecystitis, CVA, Diverticulitis, Homicidal, Suicidal, threat to staff... and all critical care pts) @ -yes - Lab Data Result diagrams: 11/16/22 14:10 11/16/22 14:10 Lab Results 11/16/22 11/16/22 11/16/22 Range/Units 14:10 14:10 14:10 WBC 24.4 H (3.8-10.6) k/uL RBC 4.95 (4.30-5.90) m/uL Hgb 13.3 (13.0-17.5) gm/dL Hct 41.2 (39.0-53.0) % MCV 83.3 (80.0-100.0) fL MCH 26.8 (25.0-35.0) pg MCHC 32.2 (31.0-37.0) g/dL RDW 14.7 (11.5-15.5) % Plt Count 550 H (150-450) k/uL MPV 6.7 Neutrophils % 82 % Lymphocytes % 12 % Monocytes % 4 % Eosinophils % 1 % Basophils % 0 % Neutrophils # 20.0 H (1.3-7.7) k/uL Lymphocytes # 2.8 (1.0-4.8) k/uL Monocytes # 1.0 (0-1.0) k/uL Eosinophils # 0.3 (0-0.7) k/uL Basophils # 0.1 (0-0.2) k/uL PT 10.4 (9.0-12.0) sec INR 1.0 (<1.2) APTT 24.4 (22.0-30.0) sec Sodium 133 L (137-145) mmol/L Potassium 4.4 (3.5-5.1) mmol/L Chloride 99 (98-107) mmol/L Carbon Dioxide 22 (22-30) mmol/L Anion Gap 12 mmol/L BUN 18 (9-20) mg/dL Creatinine 0.85 (0.66-1.25) mg/dL Est GFR (CKD-EPI)AfAm >90 (>60 ml/min/1.73 sqM) Est GFR (CKD-EPI)NonAf >90 (>60 ml/min/1.73 sqM) Glucose 224 H (74-99) mg/dL Plasma Lactic Acid Diaz (0.7-2.0) mmol/L Calcium 10.9 H (8.4-10.2) mg/dL 11/16/22 Range/Units 14:10 WBC (3.8-10.6) k/uL RBC (4.30-5.90) m/uL Hgb (13.0-17.5) gm/dL Hct (39.0-53.0) % MCV (80.0-100.0) fL MCH (25.0-35.0) pg MCHC (31.0-37.0) g/dL RDW (11.5-15.5) % Plt Count (150-450) k/uL MPV Neutrophils % % Lymphocytes % % Monocytes % % Eosinophils % % Basophils % % Neutrophils # (1.3-7.7) k/uL Lymphocytes # (1.0-4.8) k/uL Monocytes # (0-1.0) k/uL Eosinophils # (0-0.7) k/uL Basophils # (0-0.2) k/uL PT (9.0-12.0) sec INR (<1.2) APTT (22.0-30.0) sec Sodium (137-145) mmol/L Potassium (3.5-5.1) mmol/L Chloride (98-107) mmol/L Carbon Dioxide (22-30) mmol/L Anion Gap mmol/L BUN (9-20) mg/dL Creatinine (0.66-1.25) mg/dL Est GFR (CKD-EPI)AfAm (>60 ml/min/1.73 sqM) Est GFR (CKD-EPI)NonAf (>60 ml/min/1.73 sqM) Glucose (74-99) mg/dL Plasma Lactic Acid Diaz 1.5 (0.7-2.0) mmol/L Calcium (8.4-10.2) mg/dL Disposition Clinical Impression: Sepsis, Wound of foot Disposition: OTHER INSTITUTION NOT DEFINED Condition: Serious Referrals: None,Stated [Primary Care Provider] - 1-2 days Time of Disposition: 15:27 - Out of Hospital Transfer - Req. Specs Out of Hospital Transfer - Requested Specifics: Other Emergency Center ([facility])
[2022-11-16 14:31] LABS: Basophils # (A) 0.1 k/uL (0-0.2); Basophils % (A) 0 %; Eosinophils # (A) 0.3 k/uL (0-0.7); Eosinophils % (A) 1 %; HCT 41.2 % (39.0-53.0); HGB 13.3 gm/dL (13.0-17.5); Lymphocytes # (A) 2.8 k/uL (1.0-4.8); Lymphocytes % (A) 12 %; MCH 26.8 pg (25.0-35.0); MCHC 32.2 g/dL (31.0-37.0); MCV 83.3 fL (80.0-100.0); Mean Platelet Volume 6.7; Monocytes % (A) 4 %; Neutrophils % (A) 82 %; Platelet Count 550 k/uL (150-450); RBC 4.95 m/uL (4.30-5.90); RDW 14.7 % (11.5-15.5); WBC 24.4 k/uL (3.8-10.6)
[2022-11-16 14:42] LABS: Partial Thromboplastin Time 24.4 sec (22.0-30.0); Prothrombin Time 10.4 sec (9.0-12.0)
[2022-11-16 14:50] LABS: African American GFR (CKD) >90 (>60 ml/min/1.73 sqM); Anion Gap 12 mmol/L; Blood Urea Nitrogen 18 mg/dL (9-20); Calcium 10.9 mg/dL (8.4-10.2); Carbon Dioxide 22 mmol/L (22-30); Chloride 99 mmol/L (98-107); Glucose 224 mg/dL (74-99); Non-African American GFR(CKD) >90 (>60 ml/min/1.73 sqM); Potassium 4.4 mmol/L (3.5-5.1); Sodium 133 mmol/L (137-145)
[2022-11-16 15:17] VITALS: BP 162/85; PULSE 113; RESP 16; TEMP 99.2
[2022-11-16] MEDS ORDERED: MORPHINE SULFATE 4 MG/ML SYRINGE IV STA (15:18)
[2022-11-16] MEDS ORDERED: VANCOMYCIN 2,000 MG in SODIUM CHLORIDE 0.9% 500 ML 500 ML IVPB SCH (23:00)
== END 2022-11-16 16:45 | disposition other institution (70) ==
LOC: EC 13:10
DX: S91.302A Unspecified open wound, left foot, initial encounter (principal); A41.9 Sepsis, unspecified organism; R65.20 Severe sepsis without septic shock; E11.9 Type 2 diabetes mellitus without complications; I10 Essential (primary) hypertension; Z79.899 Other long term (current) drug therapy; Z86.59 Personal history of other mental and behavioral disorders; Z87.891 Personal history of nicotine dependence; X58.XXXA Exposure to other specified factors, initial encounter
CPT/HCPCS: 36415; 80048; 83605; 85025; 85610; 85730; 87040; 99284; 96365; 96367; 96375; J2543; J3370; J2270

== ENCOUNTER 2024-11-01 04:01 | Observation (INO) | payer OTHER ==
[2024-11-01 04:14] LABS: Glucose,Whole Blood 212 mg/dL (70-110)
[2024-11-01] MEDS: SODIUM CHLORIDE 0.9% 1,000 ML IV STA (04:20)
[2024-11-01 04:27] LABS: Basophils # (A) 0.05 10*3/uL (0.00-0.10); Basophils % (A) 0.5 %; Eosinophils # (A) 0.09 10*3/uL (0.04-0.35); Eosinophils % (A) 0.9 %; HCT 40.2 % (39.6-50.0); HGB 13.4 g/dL (13.0-17.0); Lymphocytes # (A) 3.24 10*3/uL (0.90-5.00); Lymphocytes % (A) 30.6 %; MCH 28.9 pg (27.0-32.0); MCHC 33.3 g/dL (32.0-37.0); MCV 86.6 fL (80.0-97.0); Mean Platelet Volume 8.9 fL (9.5-12.2); Monocytes # (A) 0.76 10*3/uL (0.20-1.00); Monocytes % (A) 7.2 %; Neutrophils # (A) 6.39 10*3/uL (1.80-7.70); Neutrophils % (A) 60.3 %; Platelet Count 289 10*3/uL (140-440); RBC 4.64 10*6/uL (4.40-5.60); RDW 12.7 % (11.5-14.5); WBC 10.58 10*3/uL (4.50-10.00)
--- NOTE | 2024-11-01 04:42 | ED ---
General Adult HPI - General Chief complaint: Syncope Stated complaint: Syncope Time Seen by Provider: 11/01/24 04:07 Source: patient, EMS Mode of arrival: EMS Limitations: no limitations - History of Present Illness Initial comments: Patient is a 44-year-old male past medical history of diabetes, presenting today for multiple syncopal/near syncopal episodes he states that about 2 to 3 days ago he had multiple episodes of loose stools. These were none bloody and nonmelanotic. This evening when he got up to go to the kitchen he states that he felt like Jell-O and slid to the ground. He did hit his head on the ground but denied loss of consciousness. He went to the living room and sat down when he attempted to get up of the couch this occurred again. Again he did not fully lose consciousness and he recalls the entire event. No history of seizures and denies seizure-like activity. No tongue biting or urinary incontinence. Patient denies recent fevers or chills, chest pain, shortness of breath, abdominal pain, nausea and vomiting, lightheadedness and dizziness. States he has been admitted for sepsis in the past secondary to wounds on his feet. Denies any recent illness. Currently endorses headache, neck and back pain from his falls. Denies any focal numbness or weakness in his extremities. Of note, pt states he did have some medication changes at the beginning of this morning, including the addition of 150 mg of trazadone nightly. Pt also takes seroquel nightly. Denies melena, hematochezia. Is not on blood thinners. - Related Data Home Medications Medication Instructions Recorded Confirmed DULoxetine HCL [Cymbalta] 30 mg PO DAILY 11/16/22 11/16/22 DULoxetine HCL [Cymbalta] 60 mg PO DAILY 11/16/22 11/16/22 Dulaglutide [Trulicity] 3 mg SQ FR 11/16/22 11/16/22 Fexofenadine HCl [[place] Allergy] 180 mg PO DAILY PRN 11/16/22 11/16/22 [place] Carbonate 300 mg PO TID 11/16/22 11/16/22 QUEtiapine FUMARATE [SEROquel] 300 mg PO HS 11/16/22 11/16/22 hydrOXYzine pamoate [Vistaril] 50 mg PO TID PRN 11/16/22 11/16/22 Allergies Allergy/AdvReac Type Severity Reaction Status Date / Time No Known Allergies Allergy Verified 11/16/22 16:09 Review of Systems ROS Statement: Those systems with pertinent positive or pertinent negative responses have been documented in the HPI. ROS Other: All systems not noted in ROS Statement are negative. Past Medical History Past Medical History: Diabetes Mellitus, Hypertension History of Any Multi-Drug Resistant Organisms: None Reported Past Surgical History: No Surgical Hx Reported Additional Past Surgical History / Comment(s): ortho on left leg, hx of sepsis "multiple times" Past Anesthesia/Blood Transfusion Reactions: No Reported Reaction Past Psychological History: Anxiety, Bipolar, Depression, Panic Disorder Smoking Status: Vaper Past Alcohol Use History: None Reported Past Drug Use History: None Reported - Past Family History Father Family Medical History: No Reported History General Exam - General Exam Comments Initial Comments: PE: CONSTITUTIONAL: No apparent distress, somewhat ill-appearing, generalized pallor nontoxic SKIN: Warm, dry, no jaundice, hives or petechiae. Feet were examined (pt endorses hx diabetic foot infections) no sores or wounds noted, skin intact without erythema EYES: Pupils are equally round, extraocular movements intact without nystagmus, clear conjunctiva, non-icteric sclera HENT: Normocephalic, atraumatic, moist mucus membranes, oropharynx clear without exudates NECK: , Full range of motion, normal appearance, TTP upper midline cspine/base of the posterior occiput without step offs PULMONARY: Clear to auscultation without wheezes, rhonchi, or rales, normal excursion, no accessory muscle use and no stridor CARDIOVASCULAR: Regular rate, rhythm, normal S1 and S2. No appreciated murmurs, rubs or gallops. Strong radial pulses with intact distal perfusion. No lower extremity edema GASTROINTESTINAL: Soft, active bowel sounds throughout, non-tender, non- distended, no palpable masses, no rebound or guarding. No hepatosplenomegaly MUSCULOSKELETAL: Extremities have no gross deformity, no edema, redness, or swelling. No calf swelling. No midline spinal TTP. Left shoulder shows no gross deformity, no bony TTP NEUROLOGIC:_a/o x 3, GCS 15, normal mentation and speech. Moves all extremities x 4 without motor or sensory deficit PSYCHIATRIC:_normal mood and affect, thought process is clear and linear Limitations: no limitations Course Vital Signs 11/01/24 11/01/24 11/01/24 04:06 04:15 04:23 Temperature 97.8 F Pulse Rate 103 H 98 89 Respiratory 18 16 16 Rate Blood Pressure 74/65 89/51 98/69 O2 Sat by Pulse 96 95 95 Oximetry 11/01/24 11/01/24 11/01/24 04:43 04:48 05:01 Temperature Pulse Rate 88 85 85 Respiratory 16 16 16 Rate Blood Pressure 95/57 105/59 115/63 O2 Sat by Pulse 94 L 94 L 90 L Oximetry 11/01/24 11/01/24 11/01/24 05:05 05:36 06:06 Temperature Pulse Rate 84 83 Respiratory 16 16 Rate Blood Pressure 120/75 115/70 O2 Sat by Pulse 96 95 94 L Oximetry 11/01/24 07:23 Temperature 97.6 F Pulse Rate 76 Respiratory 18 Rate Blood Pressure 132/70 O2 Sat by Pulse 96 Oximetry EKG Findings - EKG Comments: EKG Findings:: Sinus tachycardia, rate 101 bpm, [place] interval 160 ms QT/QTc 340/40 ms, normal axis, no significant ST elevations or depressions, no arrhythmia Medical Decision Making - Medical Decision Making Was pt. sent in by a medical professional or institution (, PA, ECHOCARDIOGRAPHY TECH, urgent care, hospital, or intermediate...) When possible be specific @ -No Did you speak to anyone other than the patient for history (EMS, parent, family, police, friend...)? What history was obtained from this source No Did you review nursing and triage notes (agree or disagree)? Why? @ -I reviewed and agree with nursing and triage notes Were old charts reviewed (outside hosp., previous admission, EMS record, old E KG, old radiological studies, urgent care reports/EKG's, intermediate records)? Report findings @ -Medical records reviewed Differential Diagnosis (chest pain, altered mental status, abdominal pain women, abdominal pain men, vaginal bleeding, weakness, fever, dyspnea, syncope, headache, dizziness, GI bleed, back pain, seizure, CVA, palpatations, mental health, musculoskeletal)? @Differential Syncope: Valvular disease, hypertrophic cardiomyopathy, pulmonary embolism, tamponade, tachycardia, bradycardia, MO, hypovolemia, hemorrhage, dissection, anemia, intracranial hemorrhage, seizure, hypoglycemia, carbon monoxide poisoning, this is not meant to be an all-inclusive list. EKG interpreted by me (3pts min.). @ -As above X-rays interpreted by me (1pt min.). @ Personally reviewed CXR, no cardiomegaly, no consolidations, agree with radiologist CT interpreted by me (1pt min.). @Personally reviewed CT brain/ cspine I see no evidence of skull or c spine fracture, no evidence of hemorrhage I agree with radiologist interpretation U/S interpreted by me (1pt. min.). @ pending at time of admission What testing was considered but not performed or refused? (CT, X-rays, U/S, labs)? Why? @ -None What meds were considered but not given or refused? Why? @ -None Did you discuss the management of the patient with other professionals (professionals i.e. , PA, ECHOCARDIOGRAPHY TECH, lab, RT, psych nurse, director of social work, process safety engineer, teacher, state patrol officer, pillowcase folder)? Give summary @ -No Was smoking cessation discussed for >3mins.? @ -No Was critical care preformed (if so, how long)? @ -No Were there social determinants of health that impacted care today? How? (Homelessness, low income, unemployed, alcoholism, drug addiction, transportation, low edu. Level, literacy, decrease access to med. care, residential, rehab)? @ -No Was there de-escalation of care discussed even if they declined (Discuss DNR or withdrawal of care, Hospice)? @ -No What co-morbidities impacted this encounter? (DM, HTN, Smoking, COPD, CAD, Cancer, CVA, ARF, Chemo, Hep., AIDS, mental health diagnosis, sleep apnea, morbid obesity)? @DM Was patient admitted / discharged? Hospital course, mention meds given and route, prescriptions, significant lab abnormalities, going to OR and other pertinent info. @Admission- Patient is a pleasant 44 y/o gentleman presenting today for 2 episodes near syncope, diarrhea 3 days ago. Pt denies infectious symptoms. Mildly tachycardic on arrival, HR 103, hypotensive w/ BP 74/65, MAP 58. Afebrile. Suspect vital signs and symptoms are 2/2 volume depletion vs polypharmacy, therefor blood cultures note ordered at this point. Discussed with pt IV fluids, basic labs. Pt agreeable with POC. Labs reviewed- significant for RAMAN- BUN 19, creatinine 1.89, previously 0.85 on 11/16, GFR 42. Suspect prerenal RAMAN secondary to volume depletion. Bladder scan showed 250 cc of urine in the bladder. Vital signs improved and blood pressure stabilized with administration of 2 L IV fluids. Patient will be ad mitted observation due to RAMAN for nephrology consultation. US renal ordered. Updated patient with the findings and plan of care which he was agreeable. Case was discussed with Dr. Locke, Who kindly excepted patient for admission. Undiagnosed new problem with uncertain prognosis? @ -No Drug Therapy requiring intensive monitoring for toxicity (Heparin, Nitro, Insulin, Cardizem)? @ -No Were any procedures done? @ -No Diagnosis/symptom? @ -Near syncope, RAMAN Acute, or Chronic, or Acute on Chronic? @Acute Uncomplicated (without systemic symptoms) or Complicated (systemic symptoms)? @ -Complicated Side effects of treatment? @ -No Exacerbation, Progression, or Severe Exacerbation? @ -No Poses a threat to life or bodily function? How? (Chest pain, USA, MO, pneumonia, PE, COPD, DKA, ARF, appy, cholecystitis, CVA, Diverticulitis, Homicidal, Suicidal, threat to staff... and all critical care pts) @ -Potentially, if left untreated RAMAN could progress to renal failure - Lab Data Result diagrams: 11/01/24 04:19 11/01/24 04:19 Lab Results 11/01/24 11/01/24 11/01/24 Range/Units 04:10 04:19 04:19 WBC 10.58 H (4.50-10.00) 10*3/uL RBC 4.64 (4.40-5.60) 10*6/uL Hgb 13.4 (13.0-17.0) g/dL Hct 40.2 (39.6-50.0) % MCV 86.6 (80.0-97.0) fL MCH 28.9 (27.0-32.0) pg MCHC 33.3 (32.0-37.0) g/dL Plt Count 289 (140-440) 10*3/uL MPV 8.9 L (9.5-12.2) fL Immature Gran % (Auto) 0.5 % Neutrophils % 60.3 % Lymphocytes % 30.6 % Monocytes % 7.2 % Eosinophils % 0.9 % Basophils % 0.5 % Immature Gran # 0.05 H (0.00-0.04) 10*3/uL Neutrophils # 6.39 (1.80-7.70) 10*3/uL Lymphocytes # 3.24 (0.90-5.00) 10*3/uL Monocytes # 0.76 (0.20-1.00) 10*3/uL Eosinophils # 0.09 (0.04-0.35) 10*3/uL Basophils # 0.05 (0.00-0.10) 10*3/uL PT 11.2 (10.0-12.5) sec INR 1.0 (<1.2) APTT 23.5 (22.0-30.0) sec D-Dimer 0.40 (<0.60) mg/L FEU Sodium (137-145) mmol/L Potassium (3.5-5.1) mmol/L Chloride (98-107) mmol/L Carbon Dioxide (22-30) mmol/L Anion Gap mmol/L BUN (9-20) mg/dL Creatinine (0.66-1.25) mg/dL Est GFR (CKD-EPI)AfAm (>60 ml/min/1.73 sqM) Est GFR (CKD-EPI)NonAf (>60 ml/min/1.73 sqM) Glucose (74-99) mg/dL POC Glucose (mg/dL) 212 H (70-110) mg/dL POC Glu Table [employer] ID [place] Calcium (8.4-10.2) mg/dL Magnesium (1.6-2.3) mg/dL Total Bilirubin (0.2-1.3) mg/dL AST (17-59) U/L ALT (4-49) U/L Alkaline Phosphatase (38-126) U/L Troponin I (0.000-0.034) ng/mL Total Protein (6.3-8.2) g/dL Albumin (3.5-5.0) g/dL 11/01/24 11/01/24 Range/Units 04:19 04:19 WBC (4.50-10.00) 10*3/uL RBC (4.40-5.60) 10*6/uL Hgb (13.0-17.0) g/dL Hct (39.6-50.0) % MCV (80.0-97.0) fL MCH (27.0-32.0) pg MCHC (32.0-37.0) g/dL Plt Count (140-440) 10*3/uL MPV (9.5-12.2) fL Immature Gran % (Auto) % Neutrophils % % Lymphocytes % % Monocytes % % Eosinophils % % Basophils % % Immature Gran # (0.00-0.04) 10*3/uL Neutrophils # (1.80-7.70) 10*3/uL Lymphocytes # (0.90-5.00) 10*3/uL Monocytes # (0.20-1.00) 10*3/uL Eosinophils # (0.04-0.35) 10*3/uL Basophils # (0.00-0.10) 10*3/uL PT (10.0-12.5) sec INR (<1.2) APTT (22.0-30.0) sec D-Dimer (<0.60) mg/L FEU Sodium 136 L (137-145) mmol/L Potassium 4.4 (3.5-5.1) mmol/L Chloride 104 (98-107) mmol/L Carbon Dioxide 19 L (22-30) mmol/L Anion Gap 13 mmol/L BUN 30 H (9-20) mg/dL Creatinine 1.89 H (0.66-1.25) mg/dL Est GFR (CKD-EPI)AfAm 48 (>60 ml/min/1.73 sqM) Est GFR (CKD-EPI)NonAf 42 (>60 ml/min/1.73 sqM) Glucose 207 H (74-99) mg/dL POC Glucose (mg/dL) (70-110) mg/dL POC Glu Table Games Dealer ID Calcium 10.5 H (8.4-10.2) mg/dL Magnesium 2.2 (1.6-2.3) mg/dL Total Bilirubin 0.5 (0.2-1.3) mg/dL AST 29 (17-59) U/L ALT 25 (4-49) U/L Alkaline Phosphatase 70 (38-126) U/L Troponin I <0.012 (0.000-0.034) ng/mL Total Protein 6.1 L (6.3-8.2) g/dL Albumin 3.6 (3.5-5.0) g/dL Disposition Clinical Impression: Near syncope, RAMAN (acute kidney injury) Disposition: ADMITTED IP TO THIS HOSP Condition: Stable
[2024-11-01 04:50] LABS: ALT 25 U/L (4-49); AST 29 U/L (17-59); African American GFR (CKD) 48 (>60 ml/min/1.73 sqM); Albumin 3.6 g/dL (3.5-5.0); Alkaline Phosphatase 70 U/L (38-126); Anion Gap 13 mmol/L; Blood Urea Nitrogen 30 mg/dL (9-20); Calcium 10.5 mg/dL (8.4-10.2); Carbon Dioxide 19 mmol/L (22-30); Chloride 104 mmol/L (98-107); Glucose 207 mg/dL (74-99); Magnesium 2.2 mg/dL (1.6-2.3); Non-African American GFR(CKD) 42 (>60 ml/min/1.73 sqM); Potassium 4.4 mmol/L (3.5-5.1); Sodium 136 mmol/L (137-145); Total Bilirubin 0.5 mg/dL (0.2-1.3); Total Protein 6.1 g/dL (6.3-8.2)
--- NOTE | 2024-11-01 05:01 | CT ---
EXAM: CT Head Without Intravenous Contrast CLINICAL HISTORY: Syncope, hit head x2, upper neck pain TECHNIQUE: Axial computed tomography images of the head/brain without intravenous contrast. CTDI is 45.2 mGy and DLP is 1115 mGy-cm. This CT exam was performed using one or more of the following dose reduction techniques: automated exposure control, adjustment of the mA and/or kV according to patient size, and/or use of iterative reconstruction technique. COMPARISON: No relevant prior studies available. FINDINGS: Brain: Ventricles and sulci are normal in size and configuration for age. No acute stroke. No acute hemorrhage. No abnormal extra-axial fluid collection. Ventricles: No hydrocephalus. No midline shift. Bones/joints: Unremarkable. No acute fracture. Soft tissues: Unremarkable. Sinuses: Left maxillary sinus probable mucous retention cyst. No acute sinusitis. IMPRESSION: No acute post-traumatic intracranial abnormality. EXAM: CT Cervical Spine Without Intravenous Contrast CLINICAL HISTORY: Syncope, hit head x2, upper neck pain TECHNIQUE: Axial computed tomography images of the cervical spine without intravenous contrast. CTDI is 25.7 mGy and DLP is 782.1 mGy-cm. This CT exam was performed using one or more of the following dose reduction techniques: automated exposure control, adjustment of the mA and/or kV according to patient size, and/or use of iterative reconstruction technique. COMPARISON: No relevant prior studies available. FINDINGS: Vertebrae: No acute fracture. Maintenance of height of the vertebral bodies. No subluxation. Mild reversal of the normal cervical lordosis. Discs/spinal canal/neural foramina: Degenerative changes, greatest at C3-4 and C5-6. Soft tissues: Prevertebral soft tissues are unremarkable. IMPRESSION: Mild reversal of the normal cervical lordosis, most commonly seen with muscle spasm or positioning. Multilevel degenerative changes.
[2024-11-01 05:42] LABS: Partial Thromboplastin Time 23.5 sec (22.0-30.0); Prothrombin Time 11.2 sec (10.0-12.5)
--- NOTE | 2024-11-01 06:36 | XR ---
EXAM: XR Chest, 1 View CLINICAL HISTORY: ITS.REASON XR Reason: syncope TECHNIQUE: Frontal view of the chest. COMPARISON: X-ray dated 07/09/2017. FINDINGS: Lungs: Unremarkable. No consolidation. Pleural space: Unremarkable. No pneumothorax. Heart: Unremarkable. No cardiomegaly. Mediastinum: Unremarkable. Normal mediastinal contour. Bones/joints: Degenerative changes are seen within the spine and shoulders. No acute fracture. IMPRESSION: No acute findings in the chest.
[2024-11-01] MEDS: SODIUM CHLORIDE 0.9% 1,000 ML IV SCH (06:47)
[2024-11-01] MEDS ORDERED: ONDANSETRON 4 MG/2 ML VIAL IVP PRN (07:05)
[2024-11-01] MEDS ORDERED: NALOXONE 0.4 MG/ML 1 ML VIAL IV PRN (07:05)
[2024-11-01] MEDS ORDERED: MAG HYDROX/AL HYDROX/SIMETH 30 ML CUP PO PRN (07:05)
[2024-11-01] MEDS ORDERED: CALCIUM CARBONATE 500 MG CHEWABLE PO PRN (07:05)
[2024-11-01] MEDS ORDERED: IBUPROFEN 400 MG TAB PO PRN (07:05)
[2024-11-01 07:07] LABS: Glucose,Whole Blood 142 mg/dL (70-110)
[2024-11-01] MEDS: INSULIN LISPRO (HumaLOG) 100 UNIT/ML 10 mL VL SQ SCH (07:25)
[2024-11-01] MEDS: ACETAMINOPHEN TAB 500 MG TAB PO STA (07:27)
--- NOTE | 2024-11-01 07:36 | US ---
EXAMINATION TYPE: US renals and bladder DATE OF EXAM: 11/01/2024 COMPARISON: NONE CLINICAL INDICATION: Male, 44 years old with history of RAMAN; RAMAN TECHNIQUE: Grayscale imaging of the bilateral kidneys and urinary bladder: FINDINGS: EXAM MEASUREMENTS: Right Kidney: 13.9 x 5.9 x 6.6 cm Left Kidney: 11.8 x 5.4 x 4.8 cm Right Kidney: Large in size, no evidence of hydro, possible calculus lower pole= 0.5 cm Left Kidney: No evidence of hydro, possible calculus lateral= 0.5 cm Bladder: wnl Bilateral Jets seen: No There is no evidence for hydronephrosis at this point in time. No nephrolithiasis is seen. No darshan s are identified. The urinary bladder is anechoic. IMPRESSION: 1. Bilateral nonobstructing renal stones. [facility], , 11/01/2024 7:34 AM
[2024-11-01] MEDS: ENOXAPARIN 40 MG/0.4 ML SYRINGE SQ SCH (08:27)
[2024-11-01] MEDS: FAMOTIDINE 20 MG TAB PO SCH (08:27)
[2024-11-01 09:45] LABS: Appearance,Urine Clear (Clear); Bilirubin,Urine Negative (Negative); Blood,Urine Negative (Negative); Color,Urine Colorless; Glucose,Urine (UA) 4+ (Negative); Ketones,Urine 1+ (Negative); Leukocyte Esterase,Urine Negative (Negative); Nitrite,Urine Negative (Negative); PH, Urine 5.5 (5.0-8.0); Protein,Urine Negative (Negative); Specific Gravity,Urine 1.024 (1.001-1.035); Urobilinogen,Urine <2.0 mg/dL (<2.0)
--- NOTE | 2024-11-01 10:38 | P.NPCON ---
History of Present Illness - Reason for Consult acute renal failure - History of Present Illness Reason for consultation: Acute kidney injury History of present illness: Patient is a 44-year-old male seen in renal consultation for acute kidney injury. Patient's creatinine in November 2022 was 0.85 and elevated at 1.89 this admission. Patient is quite sleepy and only minimally answers questions. Patient states he came to the hospital due to syncopal episodes. Patient states he passed out twice at family member's house. The first time he was down for about 30 seconds and the second time he states that he just laid there till the EMS picked him up. He does have longstanding history of diabetes. Blood glucose on admission was 207. Denies history of coronary artery disease. He denies chest pain or shortness of breath. No edema. Has been voiding. No gross hematuria or dysuria. Head CT showed no acute abnormality. Patient was noted to be hypotensive with blood pressure of 74/65 on admission. He received a liter of normal saline and is currently maintained on normal saline at 130 cc an hour. Blood pressure has improved. I still with him on his home medication list but he states that he has not been taking this for quite some time now. Vital signs are stable. General: No acute distress. HEENT: Head exam is unremarkable. LUNGS: No audible rhonchi or wheezes. HEART: Rate and Rhythm are regular. ABDOMEN: Obese, nontender. EXTREMITITES: No edema. Past Medical History Past Medical History: Diabetes Mellitus, Hypertension History of Any Multi-Drug Resistant Organisms: None Reported Past Surgical History: No Surgical Hx Reported Additional Past Surgical History / Comment(s): ortho on left leg, hx of sepsis "multiple times" Past Anesthesia/Blood Transfusion Reactions: No Reported Reaction Past Psychological History: Anxiety, Bipolar, Depression, Panic Disorder Smoking Status: Vaper Past Alcohol Use History: None Reported Past Drug Use History: None Reported - Past Family History Father Family Medical History: No Reported History Medications and Allergies Home Medications Medication Instructions Recorded Confirmed Type DULoxetine HCL [Cymbalta] 30 mg PO DAILY 11/16/22 11/16/22 History DULoxetine HCL [Cymbalta] 60 mg PO DAILY 11/16/22 11/16/22 History Dulaglutide [Trulicity] 3 mg SQ FR 11/16/22 11/16/22 History Fexofenadine HCl [[place] Allergy] 180 mg PO DAILY PRN 11/16/22 11/16/22 History [place] Carbonate 300 mg PO TID 11/16/22 11/16/22 History QUEtiapine FUMARATE [SEROquel] 300 mg PO HS 11/16/22 11/16/22 History hydrOXYzine pamoate [Vistaril] 50 mg PO TID PRN 11/16/22 11/16/22 History Allergies Allergy/AdvReac Type Severity Reaction Status Date / Time No Known Allergies Allergy Verified 11/16/22 16:09 Physical Exam Vitals: Vital Signs Temp Pulse Resp BP Pulse Ox 11/01/24 09:30 75 19 104/65 96 11/01/24 07:23 97.6 F 76 18 132/70 96 11/01/24 06:06 83 16 115/70 94 L 11/01/24 05:36 84 16 120/75 95 11/01/24 05:05 96 11/01/24 05:01 85 16 115/63 90 L 11/01/24 04:48 85 16 105/59 94 L 11/01/24 04:43 88 16 95/57 94 L 11/01/24 04:23 89 16 98/69 95 11/01/24 04:15 98 16 89/51 95 11/01/24 04:06 97.8 F 103 H 18 74/65 96 Intake and Output 10/31/24 11/01/24 11/01/24 22:59 06:59 14:59 Other: Weight 127.006 kg Results - Lab Results Most recent lab results Calcium 10.5 mg/dL (8.4-10.2) H 11/01/24 04:19 Magnesium 2.2 mg/dL (1.6-2.3) 11/01/24 04:19 11/01/24 04:19 11/01/24 04:19 Assessment and Plan Plan: Assessment: 1. Acute kidney injury secondary to ATN secondary to hypotension. Creatinine 1.8 on admission. Creatinine in November 2022 was 0.8. UA benign. No hydronephrosis noted on kidney ultrasound. 2. Syncopal episodes due to hypotension, hypovolemia. 3. Metabolic acidosis secondary to acute kidney injury. 4. Diabetes mellitus. Plan: Maintain IV fluids. Avoid nephrotoxins. Continue to monitor renal function and urine output. Thank you for the consultation. I will continue to follow the patient with you during his hospital stay.
--- NOTE | 2024-11-01 10:56 | P.HPIM ---
History of Present Illness H&P Date: 11/01/24 History of Presenting Illness: Patient is a 34-year-old male with a past medical history of hypertension, type II [id number] diabetes mellitus, anxiety with depression, panic disorder, and bipolar disorder. He presented to the emergency department with reports of multiple near syncopal episodes/falls at home. Patient reports multiple episodes over the past 3 days. Patient describes these episodes as generalized weakness in his legs just turning into Jello resulting in him falling to the ground. He expresses that he did have some episodes of diarrhea a few days ago but this has since resolved. Patient reports he is having pain to his upper and lower back and expresses frustration over multiple providers continuing to wake him up, patient only answering a few questions prior to expressing ongoing frustration. He denies having any chest pain, palpitations shortness of breath, dizziness/lightheadedness or experiencing any numbness/tingling/focal weakness in his extremities prior to near syncopal episode, and denies having any involuntary loss of bowel or bladder resulting from episode. He denies ever losing consciousness or having any recent infection or fever, but does admit to hitting his head "a time or two". He currently reports only pain is back pain and no one letting him sleep. Patient then states, "didn't you people hear me the first time, I told you my legs just turn to Jell-O and I fall down". Upon arrival to our facility, patient underwent evaluation in the emergency department. Vital signs upon arrival show blood pressure 74/65, heart rate 103, respiratory rate 18, temp 97.8 F, and SpO2 of 96% on room air. EKG was completed showing sinus tachycardia at 101 bpm with no significant T wave or ST abnormality showing no signs of acute ischemia upon personal review and interpretation. CT head negative for acute intracranial abnormality. CT cervical spine showing mild reversal of the normal cervical lordosis and multilevel degenerative changes greatest at C3-C4 and C5- C6. Chest x-ray negative for acute cardiopulmonary process. Labs completed and reviewed. CBC showing mild leukocytosis with WBC count of 10.58. Coagulation profile normal findings. D-dimer negative at 0.40. BMP showing sodium 136 with high anion gap metabolic acidosis and acute kidney injury with chloride of 104, bicarb of 19, anion gap of 13, BUN 30, creatinine 1.89, GFR 42 with baseline creatinine of 0.85 in 2022. Blood glucose elevated at 207. Calcium elevated at 10.5. Magnesium normal findings at 2.2. Troponin negative at less than 0.012. Patient was given a 1 L bolus of 0.9% normal saline resulting in improvement of blood pressure to 105/59 with heart rate of 85 and no further documented episodes of hypotension since bolus received. Review of systems: Pertinent positives and negatives as discussed in HPI, a complete review of systems was performed and all other systems are negative. Physical exam: Vital signs reviewed and stable. General: Nontoxic, no distress and appears stated age. Derm: Skin warm and dry, normal coloration for ethnicity. Head: Atraumatic, normocephalic and symmetric. Eyes: EOM's intact, no lid lag, and anicteric sclera Mouth: no lip lesions, mucus membranes moist Cardiovascular: regular rate and rhythm with normal S1S2, no murmur, positive posterior tibial pulses bilaterally, and cap refill < 2 seconds. Lungs: Respirations even, regular, and unlabored on room air. Lungs CTA bilaterally, no rhonchi, no rales, no wheezing, and no accessory muscle usage. Abdominal: soft, nontender to palpation, no guarding, no appreciable organomegaly Ext:No gross muscle atrophy, no contractures. Movement and sensation of all 4 extremities intact. Patient has amputated left great toe and chronic pedal nonpitting edema. Neuro: Speech clear, face symmetrical and CN II-XII grossly intact with no noted focal neuro deficits Psych: Alert and oriented to person, place, time, and situation. Appropriate and pleasant affect. Assessment and Plan of Care: Recurrent near syncopal episodes, suspect secondary to hypotension resulting from dehydration Acute kidney injury, suspect secondary to hypotension and dehydration High Anion gap metabolic acidosis Hypercalcemia -Renal ultrasound was completed in the emergency department and negative for signs of hydronephrosis showing no acute process. -Patient was given a 1 L bolus of 0.9% normal saline resulting in improvement of blood pressure to 105/59 with heart rate of 85 and no further documented episodes of hypotension since bolus received. -Continue with IV fluid hydration with 0.9% normal saline at 130 cc/h for an additional 24 hours and we will re rereevaluate fluid administration tomorrow morning after repeat morning labs. Nephrology was consulted, discussed plan of care with Dr. Hanna. -Order placed for orthostatic vitals. -Telemetry monitoring. -Fall precautions. -Caution with nephrotoxic medications. -Order placed for CT thoracic and lumbar spine secondary to patient's reports of uncontrolled back pain. Type II [id number] diabetes mellitus with hyperglycemia -Patient placed on glycemic protocol with NovoLog sliding scale. Anxiety with depression Panic disorder Bipolar disorder -Continue daily medication regimen with Depakote 500 mg twice daily and 250 mg nightly, Cymbalta 20 mg twice daily, Neurontin 800 mg 3 times daily, Seroquel 50 mg 3 times daily with meals and 400 mg nightly and as needed trazodone 50 mg nightly as needed for continued insomnia. Data and imaging reviewed: As stated above in HPI The patient is admitted with an anticipated less than 2 midnight stay for evaluation of recurrent near syncopal episodes CODE STATUS: Full code DVT prophylaxis: Lovenox Anticipated discharge date: Pending clinical course Anticipated discharge place: Home Patient was seen independently by Nurse Practitioner. This document was prepared using [employer] dictation software. Please allow for errors in sales engineer engineered products while rare they do occur. Garfield Jones NP rendered care for this patient independently, reviewed the f indings and plan as documented in the note above and agree with plan. I did not physically speak with or examine the patient on this date. Past Medical History Past Medical History: Diabetes Mellitus, Hypertension History of Any Multi-Drug Resistant Organisms: None Reported Past Surgical History: No Surgical Hx Reported Additional Past Surgical History / Comment(s): ortho on left leg, hx of sepsis "multiple times" Past Anesthesia/Blood Transfusion Reactions: No Reported Reaction Past Psychological History: Anxiety, Bipolar, Depression, Panic Disorder Smoking Status: Vaper Past Alcohol Use History: None Reported Past Drug Use History: None Reported - Past Family History Father Family Medical History: No Reported History Medications and Allergies Home Medications Medication Instructions Recorded Confirmed Type Dulaglutide [Trulicity] 3 mg SQ TH 11/16/22 11/01/24 History Albuterol Sulfate [Ventolin HFA] 2 puff INHALATION RT-QID PRN 11/01/24 11/01/24 History Celecoxib [CeleBREX] 200 mg PO DAILY 11/01/24 11/01/24 History DULoxetine HCL [Cymbalta] 20 mg PO BID 11/01/24 11/01/24 History Divalproex ER [Depakote ER] 250 mg PO HS 11/01/24 11/01/24 History Divalproex ER [Depakote ER] 500 mg PO BID 11/01/24 11/01/24 History Empagliflozin [Jardiance] 25 mg PO DAILY 11/01/24 11/01/24 History Fluticasone Nasal [place] [Flonase 2 spr EA NOSTRIL BID 11/01/24 11/01/24 History Nasal [place]] Gabapentin 800 mg PO TID 11/01/24 11/01/24 History HYDROcodone/APAP 7.5-325MG [[place] 1 tab PO TID 11/01/24 11/01/24 History 7.5-325] Losartan [Cozaar] 50 mg PO HS 11/01/24 11/01/24 History QUEtiapine [SEROquel] 50 mg PO TID-W/MEALS 11/01/24 11/01/24 History QUEtiapine [SEROquel] 400 mg PO HS 11/01/24 11/01/24 History traZODone HCL 150 mg PO HS 11/01/24 11/01/24 History traZODone HCL [Desyrel] 50 mg PO HS PRN 11/01/24 11/01/24 History Allergies Allergy/AdvReac Type Severity Reaction Status Date / Time No Known Allergies Allergy Verified 11/01/24 11:13 Physical Exam Vitals: Vital Signs Temp Pulse Resp BP Pulse Ox 11/01/24 07:23 97.6 F 76 18 132/70 96 11/01/24 06:06 83 16 115/70 94 L 11/01/24 05:36 84 16 120/75 95 11/01/24 05:05 96 11/01/24 05:01 85 16 115/63 90 L 11/01/24 04:48 85 16 105/59 94 L 11/01/24 04:43 88 16 95/57 94 L 11/01/24 04:23 89 16 98/69 95 11/01/24 04:15 98 16 89/51 95 11/01/24 04:06 97.8 F 103 H 18 74/65 96 Intake and Output 10/31/24 11/01/24 11/01/24 22:59 06:59 14:59 Other: Weight 127.006 kg Results CBC & Chem 7: 11/01/24 04:19 11/01/24 04:19 Labs: Abnormal Lab Results - Last 24 Hours (Table) 11/01/24 11/01/24 11/01/24 Range/Units 04:10 04:19 04:19 WBC 10.58 H (4.50-10.00) 10*3/uL MPV 8.9 L (9.5-12.2) fL Immature Gran # 0.05 H (0.00-0.04) 10*3/uL Sodium 136 L (137-145) mmol/L Carbon Dioxide 19 L (22-30) mmol/L BUN 30 H (9-20) mg/dL Creatinine 1.89 H (0.66-1.25) mg/dL Glucose 207 H (74-99) mg/dL POC Glucose (mg/dL) 212 H (70-110) mg/dL Calcium 10.5 H (8.4-10.2) mg/dL Total Protein 6.1 L (6.3-8.2) g/dL 11/01/24 Range/Units 07:06 WBC (4.50-10.00) 10*3/uL MPV (9.5-12.2) fL Immature Gran # (0.00-0.04) 10*3/uL Sodium (137-145) mmol/L Carbon Dioxide (22-30) mmol/L BUN (9-20) mg/dL Creatinine (0.66-1.25) mg/dL Glucose (74-99) mg/dL POC Glucose (mg/dL) 142 H (70-110) mg/dL Calcium (8.4-10.2) mg/dL Total Protein (6.3-8.2) g/dL
[2024-11-01 11:52] LABS: Glucose,Whole Blood 116 mg/dL (70-110)
[2024-11-01] MEDS ORDERED: ACETAMINOPHEN TAB 325 MG TAB PO PRN (13:00)
[2024-11-01] MEDS ORDERED: traZODone HCL 50 MG TAB PO PRN (13:07)
[2024-11-01] MEDS ORDERED: ALBUTEROL NEBULIZED 2.5 MG/3 ML INHALATION PRN (13:07)
[2024-11-01] MEDS: MELOXICAM 7.5 MG TAB PO SCH (13:57)
[2024-11-01] MEDS: DAPAGLIFLOZIN PROPANEDIOL 10 MG TABLET PO SCH (13:58)
[2024-11-01] MEDS: DIVALPROEX ER 500 MG TAB.ER.24H PO SCH (14:06)
[2024-11-01] MEDS: QUEtiapine 50 MG TAB PO SCH (14:07)
[2024-11-01] MEDS: GABAPENTIN 400 MG CAP PO SCH (17:00)
[2024-11-01] MEDS: HYDROcodone/APAP 7.5-325MG 1 EACH TAB PO SCH (17:00)
[2024-11-01 17:24] LABS: Glucose,Whole Blood 119 mg/dL (70-110)
[2024-11-01 17:58] LABS: Amphetamine Screen,Urine Not Detected (NotDetected); Barbiturate Screen,Urine Not Detected (NotDetected); Benzodiazepines Screen,Urine Not Detected (NotDetected); Cocaine Screen,Urine Not Detected (NotDetected); Methadone Screen, Urine Not Detected (NotDetected); Opiate Screen,Urine Not Detected (NotDetected); Oxycodone Screen, Urine Not Detected (NotDetected); Phencyclidine Screen,Urine Not Detected (NotDetected); Tricyclic Antidepressant,Urine Detected (NotDetected); Urn Cannabinoid Scrn Detected (NotDetected)
--- NOTE | 2024-11-01 18:55 | CT ---
EXAMINATION TYPE: CT thor lumbar spine wo con DATE OF EXAM: 11/01/2024 11:17 AM COMPARISON: None CLINICAL INDICATION: Male, 44 years old with history of reports of uncontrolled thoracic and lumbar p ain; thoracic and lumbar pain TECHNIQUE: Axial images of the thoracic and lumbar spine were obtained without contrast. Coronal and sagittal reformats were performed. CT Contrast: Contrast used: mL of , none. Oral contrast used: none. CT DLP: 2717.6 mGycm, Automated exposure control for dose reduction was used. FINDINGS: Alignment: There are 5 lumbar type vertebral bodies within normal alignment. Bone: No evidence of fracture is identified. Remote injury to the right transverse process of L1 wit h well-corticated margins. Facet joint arthropathy worse at the right L5-S1 facet joint. Subchondral cystic changes noted. Right rib 3 bone island T9-T10 central disc protrusion with at least mild to moderate spinal canal stenosis. T8-T9 central di sc protrusion with at least mild to moderate spinal canal stenosis. Remaining thoracic levels are without evidence for high-grade neural foraminal or spinal canal stenos is. Discs: T12-L1: No spinal canal or neural foraminal stenosis is identified. L1-L2: No spinal canal or neural foraminal stenosis is identified. L2-L3: No spinal canal or neural foraminal stenosis is identified. L3-L4: No spinal canal or neural foraminal stenosis is identified. L4-L5: No spinal canal or neural foraminal stenosis is identified. L5-S1: No spinal canal or neural foraminal stenosis is identified. Other: None IMPRESSION: 1. No evidence of acute fracture of the lumbar spine. Chronic appearing right transverse process of L 1 fracture. 2. T8-T9 and T9-T10 central disc protrusions suggested with mild to moderate spinal canal stenosis. F urther evaluation MRI thoracic spine recommended. [facility], , 11/01/2024 6:52 PM
[2024-11-01] MEDS ORDERED: LOSARTAN 50 MG TAB PO SCH (21:00)
[2024-11-01] MEDS: DIVALPROEX ER 250 MG TAB.ER.24H PO SCH (21:17)
[2024-11-01] MEDS: DULoxetine HCL 20 MG CAPSULE.DR PO SCH (21:17)
[2024-11-01] MEDS: FLUTICASONE NASAL 50MCG/SPRAY 16GM BTL EA NOSTRIL SCH (21:40)
[2024-11-01] MEDS: QUEtiapine 400 MG TAB PO SCH (22:59)
[2024-11-02 04:12] VITALS: RESP 16
[2024-11-02 06:05] LABS: Glucose,Whole Blood 126 mg/dL (70-110)
[2024-11-02 08:47] LABS: Calcium 9.6 mg/dL (8.7-10.3); Chloride 107 mmol/L (96-109); Glucose 122 mg/dL (70-110); Magnesium 2.2 mg/dL (1.5-2.4); Potassium 4.7 mmol/L (3.5-5.5); Sodium 139 mmol/L (135-145)
[2024-11-02 08:53] LABS: HGB 13.4 g/dL (13.0-17.0); MCH 28.3 pg (27.0-32.0); MCHC 31.9 g/dL (32.0-37.0); MCV 88.6 FL (80.0-97.0); Mean Platelet Volume 9.3 FL (9.5-12.2); NRBC Per 100 WBC 0 X 10*3/uL (0.00-0.01); Platelet Count 256 X 10*3/uL (140-440); RBC 4.74 X 10*6/uL (4.40-5.60); RDW 12.9 % (11.5-14.5); WBC 7.82 X 10*3/uL (4.50-10.00)
--- NOTE | 2024-11-02 11:09 | P.PN ---
Subjective Patient is seen in follow-up for acute kidney injury. Renal function improved. On IV fluids. No further dizziness or falls. Has been voiding. Vital signs are stable. General: No acute distress. HEENT: Head exam is unremarkable. LUNGS: No audible rhonchi or wheezes. HEART: Rate and Rhythm are regular. ABDOMEN: Nontender. EXTREMITITES: No edema. Objective - Vital Signs Vital signs: Vital Signs Temp 97.3 F L 11/02/24 07:07 Pulse 81 11/02/24 07:07 Resp 16 11/02/24 07:07 BP 122/74 11/02/24 07:07 Pulse Ox 97 11/02/24 00:48 FiO2 Intake & Output 11/01/24 11/02/24 11/02/24 18:59 06:59 18:59 Intake Total 472 Output Total 1000 Balance -528 Weight 127.006 kg Intake: Oral 472 Output: Urine 1000 Other: Voiding Method Urinal # Voids 1 - Labs CBC & Chem 7: 11/02/24 05:15 11/02/24 05:15 Labs: Abnormal Lab Results - Last 24 Hours (Table) 11/01/24 11/01/24 11/01/24 Range/Units 09:38 11:50 17:23 MCHC (32.0-37.0) g/dL MPV (9.5-12.2) FL Glucose (70-110) mg/dL POC Glucose (mg/dL) 116 H 119 H (70-110) mg/dL U Tricyclic Antidepress Detected H (NotDetected) U Marijuana (THC) Screen Detected H (NotDetected) 11/02/24 11/02/24 11/02/24 Range/Units 05:15 05:15 06:03 MCHC 31.9 L (32.0-37.0) g/dL MPV 9.3 L (9.5-12.2) FL Glucose 122 H (70-110) mg/dL POC Glucose (mg/dL) 126 H (70-110) mg/dL U Tricyclic Antidepress (NotDetected) U Marijuana (THC) Screen (NotDetected) Assessment and Plan Plan: Assessment: 1. Acute kidney injury secondary to ATN secondary to hypotension. Creatinine 1.8 on admission - improved to 1.0. Creatinine in November 2022 was 0.8. UA benign. No hydronephrosis noted on kidney ultrasound. 2. Syncopal episodes due to hypotension, hypovolemia. Improved. Orthostatics negative. 3. Metabolic acidosis secondary to acute kidney injury. Improved. 4. Diabetes mellitus. Plan: Hep-Lock IV fluids. Encouraged oral intake. Avoid nephrotoxins. Follow-up outpatient 1 to 2 weeks postdischarge.
[2024-11-02 12:30] LABS: Glucose,Whole Blood 160 mg/dL (70-110)
--- NOTE | 2024-11-02 13:02 | P.CNOR ---
History of Present Illness - [facility] Consult date: 11/02/24 Consult reason: other History of present illness: Patient is a 44-year-old male who presented to [facility] on 11/01/2024 due to a syncopal episode, upon arrival to the hospital, he underwent multiple imaging and lab studies. Patient was noted to have acute kidney injury, nephrology consult was placed. Patient is also being followed by internal medicine at this time. 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 Patient had been complaining of some mid to lower back pain, a thoracolumbar CT scan without contrast was ordered, orthopedic team was consulted due to the results. Patient was evaluated at bedside, he is resting lying on his stomach sleeping in bed, he is easily awoken both. Patient is a relatively poor historian when it comes to his medical history, he cannot give me exact dates when the pain started in his low back. Patient denies any recent trauma besides a syncopal episode. He states he has had back pain for many years. He denies any surgery to his cervical, thoracic or lumbar spine. Patient admits to neuropathy to the bilateral feet, he does occasionally state he gets left lower extremity numbness and tingling, nothing present at this time. He denies any jewel loss of weakness to the bilateral lower extremities or bilateral upper extremities. He denies any loss of bowel or bladder function. He denies any genital or perineal numbness or tingling at this time. He denies any use of assistive devices and ambulation. Patient states he normally lives in [place] but visits family here quite often. Patient is currently disabled he states. Review of Systems Constitutional: Reports as per HPI Past Medical History Past Medical History: Diabetes Mellitus, Hypertension History of Any Multi-Drug Resistant Organisms: None Reported Past Surgical History: Orthopedic Surgery Additional Past Surgical History / Comment(s): ortho on left leg, hx of sepsis "multiple times", Sx on right toe. Left Great toe has been removed. Past Anesthesia/Blood Transfusion Reactions: No Reported Reaction Past Psychological History: Anxiety, Bipolar, Depression, Panic Disorder Smoking Status: Vaper Past Alcohol Use History: None Reported Past Drug Use History: Marijuana Additional Drug Use History / Comment(s): Patient states he rarely uses a marijuana edible. - Past Family History Father Family Medical History: No Reported History Medications and Allergies Home Medications Medication Instructions Recorded Confirmed Type Dulaglutide [Trulicity] 3 mg SQ TH 11/16/22 11/01/24 History Albuterol Sulfate [Ventolin HFA] 2 puff INHALATION RT-QID PRN 11/01/24 11/01/24 History Celecoxib [CeleBREX] 200 mg PO DAILY 11/01/24 11/01/24 History DULoxetine HCL [Cymbalta] 20 mg PO BID 11/01/24 11/01/24 History Divalproex ER [Depakote ER] 250 mg PO HS 11/01/24 11/01/24 History Divalproex ER [Depakote ER] 500 mg PO BID 11/01/24 11/01/24 History Empagliflozin [Jardiance] 25 mg PO DAILY 11/01/24 11/01/24 History Fluticasone Nasal [place] [Flonase 2 spr EA NOSTRIL BID 11/01/24 11/01/24 History Nasal [place]] Gabapentin 800 mg PO TID 11/01/24 11/01/24 History HYDROcodone/APAP 7.5-325MG [[place] 1 tab PO TID 11/01/24 11/01/24 History 7.5-325] Losartan [Cozaar] 50 mg PO HS 11/01/24 11/01/24 History QUEtiapine [SEROquel] 50 mg PO TID-W/MEALS 11/01/24 11/01/24 History QUEtiapine [SEROquel] 400 mg PO HS 11/01/24 11/01/24 History traZODone HCL 150 mg PO HS 11/01/24 11/01/24 History traZODone HCL [Desyrel] 50 mg PO HS PRN 11/01/24 11/01/24 History Allergies Allergy/AdvReac Type Severity Reaction Status Date / Time No Known Allergies Allergy Verified 11/01/24 11:13 Physical Examination Gen: AOx3, NAD VSS stable at this time Integument: No open lesions or sores are visualized throughout the cervical, thoracic or lumbar spine Palpation: No significant tenderness with palpation of the midline or paraspinal region of the cervical, thoracic or lumbar spine ROM: Full range of motion in all major muscle groups of the bilateral upper and lower extremities, no focal deficits appreciated Sensory Exam: Senory exam to light touch is intact C5-T1 [place] exam to light touch is intact L2-S1, loss of light touch to the bilateral feet/ankles Motor: 5/5 strength appreciated bilateral upper extremities with shoulder elevation, shoulder abduction, elbow extension, elbow flexion, wrist extension, wrist flexion, blending operator 4+/5 strength appreciated to the bilateral lower extremities with hip flexion, knee extension, knee flexion, plantarflexion, dorsiflexion, EHL, FHL. Left lower extremity plantar and dorsiflexion are slightly weaker, patient notes significant arthritis to this ankle with limited range of motion Reflexes: 2/4 in all UE and LE Negative Damari's bilaterally Negative clonus bilaterally Special Test: Negative straight leg raise bilaterally Results - Labs Labs: Abnormal Lab Results - Last 24 Hours (Table) 11/01/24 11/01/24 11/02/24 Range/Units 09:38 17:23 05:15 MCHC (32.0-37.0) g/dL MPV (9.5-12.2) FL Glucose 122 H (70-110) mg/dL POC Glucose (mg/dL) 119 H (70-110) mg/dL U Tricyclic Antidepress Detected H (NotDetected) U Marijuana (THC) Screen Detected H (NotDetected) 11/02/24 11/02/24 11/02/24 Range/Units 05:15 06:03 12:29 MCHC 31.9 L (32.0-37.0) g/dL MPV 9.3 L (9.5-12.2) FL Glucose (70-110) mg/dL POC Glucose (mg/dL) 126 H 160 H (70-110) mg/dL U Tricyclic Antidepress (NotDetected) U Marijuana (THC) Screen (NotDetected) H & H 11/01/24 11/02/24 Range/Units 04:19 05:15 Hgb 13.4 13.4 (13.0-17.0) g/dL Hct 40.2 42.0 (39.6-50.0) % Coagulation 11/01/24 Range/Units 04:19 INR 1.0 (<1.2) Result Diagrams: 11/02/24 05:15 11/02/24 05:15 Assessment and Plan Assessment: Thoracolumbar pain, chronic Multilevel thoracic spondylosis, most notable levels T7-T8, T8-T9, T9-T10 Lumbar spondylosis, more specific L1-L2 region Acute kidney injury Syncopal episode Other medical comorbidities Plan: Imaging: Thoracolumbar CT without contrast was reviewed, this to include reports and images. No acute fractures or dislocations are present. Images do demonstrate thoracic spondylosis at multiple levels, most notable being T7-T8, T9-T10. Report did mention disc protrusions causing spinal stenosis. L1-L2 spondylosis appreciated Plan: I was able to discuss the case, this to include with physical exam findings and imaging studies my attending Dr. Jasmine. Patient appears to be exhibiting no acute neuropathic signs. No further imaging studies recommended at this time during his inpatient stay Pain control, patient seems relatively comfortable on exam, could consider use of Tylenol versus oral anti-inflammatories Weight-bear as tolerated Recommending follow-up in the outpatient setting on an as-needed basis Please contact orthopedic service any further questions regarding this patient Time with Patient: Less than 30
--- NOTE | 2024-11-02 14:41 | P.DS ---
Providers Date of admission: 11/01/24 07:05 Expected date of discharge: 11/02/24 Attending physician: Luis Carlos Locke MD Consults: 11/01/24 06:42 Consult Physician Urgent Consulting Provider: Donal Hanna Consult Reason/Comments: RAMAN Do you want consulting provider notified?: Yes, Notify in am 11/02/24 10:10 Consult Physician Urgent Consulting Provider: Khris Jasmine Consult Reason/Comments: T8-T9, T9-T10 disc protusion w/ moderate spinal canal stenosis Do you want consulting provider notified?: Yes Primary care physician: Physician Nonsta Hospital Course: Discharge Diagnosis: Recurrent near syncopal episodes, suspect secondary to hypotension resulting from dehydration. Patient rehydrated and had full resolution of symptoms. Ambulating without any difficulties denies any dizziness/lightheadedness or lower extremity weakness. Thoracic disc protrusion and mild to moderate spinal canal stenosis. CT thoracic and lumbar spine completed showing no evidence of acute fracture but did reveal T8-T9 and T9-T10 central disc protrusion suggesting with mild to moderate spinal canal stenosis and a chronic appearing right transverse process fracture of L1. Patient was evaluated by orthospine surgery team stating no further imaging studies recommended at this time as patient appears to be exhibiting no acute neuropathic signs recommending symptomatic care and pain management and outpatient follow-up in their office on an as needed basis. Acute kidney injury, suspect secondary to hypotension and dehydration. Resolved after IV fluid hydration. High Anion gap metabolic acidosis. Resolved after IV fluid hydration. Hypercalcemia. Resolved after IV fluid hydration. Type II [id number] diabetes mellitus with hyperglycemia. Resume Jardiance 25 mg daily. Anxiety with depression. Continue daily medication regimen with Depakote 500 mg twice daily and 250 mg nightly, Cymbalta 20 mg twice daily, Neurontin 800 mg 3 t imes daily, Seroquel 50 mg 3 times daily with meals and 400 mg nightly and as needed trazodone 50 mg nightly as needed for continued insomnia. Panic disorder. Continue daily medication regimen with Depakote 500 mg twice daily and 250 mg nightly, Cymbalta 20 mg twice daily, Neurontin 800 mg 3 times daily, Seroquel 50 mg 3 times daily with meals and 400 mg nightly and as needed trazodone 50 mg nightly as needed for continued insomnia. Bipolar disorder. Continue daily medication regimen with Depakote 500 mg twice daily and 250 mg nightly, Cymbalta 20 mg twice daily, Neurontin 800 mg 3 times daily, Seroquel 50 mg 3 times daily with meals and 400 mg nightly and as needed trazodone 50 mg nightly as needed for continued insomnia. Hospital Course: Patient is a 34-year-old male with a past medical history of hypertension, type II emx-dczdiyz-npjshbiei diabetes mellitus, anxiety with depression, panic disorder, and bipolar disorder. He presented to the emergency department with reports of multiple near syncopal episodes/falls at home. Patient reports multiple episodes over the past 3 days. Patient describes these episodes as generalized weakness in his legs just turning into Jello resulting in him falling to the ground. He expresses that he did have some episodes of diarrhea a few days ago but this has since resolved. Patient reports he is having pain t o his upper and lower back and expresses frustration over multiple providers continuing to wake him up, patient only answering a few questions prior to expressing ongoing frustration. He denies having any chest pain, palpitations shortness of breath, dizziness/lightheadedness or experiencing any numbness/tingling/focal weakness in his extremities prior to near syncopal episode, and denies having any involuntary loss of bowel or bladder resulting from episode. He denies ever losing consciousness or having any recent infection or fever, but does admit to hitting his head "a time or two". He c urrently reports only pain is back pain and no one letting him sleep. Patient then states, "didn't you people hear me the first time, I told you my legs just turn to Jell-O and I fall down". Upon arrival to our facility, patient underwent evaluation in the emergency department. Vital signs upon arrival show blood pressure 74/65, heart rate 103, respiratory rate 18, temp 97.8 F, and SpO2 of 96% on room air. EKG was completed showing sinus tachycardia at 101 bpm with no significant T wave or ST abnormality showing no signs of acute ischemia upon personal review and interpretation. CT head negative for acute intracranial abnormality. CT cervical spine showing mild reversal of the normal cervical lordosis and multilevel degenerative changes greatest at C3-C4 and C5- C6. Chest x-ray negative for acute cardiopulmonary process. Labs completed and reviewed. CBC showing mild leukocytosis with WBC count of 10.58. Coagulation profile normal findings. D-dimer negative at 0.40. BMP showing sodium 136 with high anion gap metabolic acidosis and acute kidney injury with chloride of 104, bicarb of 19, anion gap of 13, BUN 30, creatinine 1.89, GFR 42 with baseline creatinine of 0.85 in 2022. Blood glucose elevated at 207. Calcium elevated at 10.5. Magnesium normal findings at 2.2. Troponin negative at less than 0.012. Patient was given a 1 L bolus of 0.9% normal saline resulting in improvement of blood pressure to 105/59 with heart rate of 85 and no further documented episodes of hypotension since bolus received. CT thoracic and lumbar spine completed showing no evidence of acute fracture but did reveal T8-T9 and T9-T10 central disc protrusion suggesting with mild to moderate spinal canal stenosis and a chronic appearing right transverse process fracture of L1. Patient was evaluated by orthospine surgery team stating no further imaging studies recommended at this time as patient appears to be exhibiting no acute neuropathic signs recommending symptomatic care and pain management and outpatient follow-up in their office on an as needed basis. Acute kidney injury, high anion gap metabolic acidosis, and hypercalcemia all resolved with IV fluid hydration. Patient had no further episodes of near syncopal events, reports no new complaints and ambulating without any difficulties. Patient cleared from Ortho spine surgery team and nephrology and is medically optimized for discharge at this time. Patient to follow-up outpatient with PCP in 1 week, rubber moulding machine operator in 2 weeks, and orthospine surgery team as needed. Physical exam: Vital signs reviewed and stable. General: Nontoxic, no distress and appears stated age. Derm: Skin warm and dry, normal coloration for ethnicity. Head: Atraumatic, normocephalic and symmetric. Eyes: EOM's intact, no lid lag, and anicteric sclera Mouth: no lip lesions, mucus membranes moist Cardiovascular: regular rate and rhythm with normal S1S2, no murmur, positive posterior tibial pulses bilaterally, and cap refill < 2 seconds. Lungs: Respirations even, regular, and unlabored on room air. Lungs CTA bilaterally, no rhonchi, no rales, no wheezing, and no accessory muscle usage. Abdominal: soft, nontender to palpation, no guarding, no appreciable organomegaly Ext:No gross muscle atrophy, no contractures. Movement and sensation of all 4 extremities intact. Patient has amputated left great toe and chronic pedal nonpitting edema. Neuro: Speech clear, face symmetrical and CN II-XII grossly intact with no noted focal neuro deficits Psych: Alert and oriented to person, place, time, and situation. Appropriate and pleasant affect. A total of 35 minutes of time were spent preparing this complex discharge summary. Pt was discharged on 11/02/2024 at 2:38 PM. Patient was seen independently by Nurse Practitioner. This document was prepared using [employer] dictation software. Please allow for errors in account relationship manager while rare they do occur. Garfield Jones NP rendered care for this patient independently, reviewed the findings and plan as documented in the note above. I did not physically speak with or examine the patient on this date. Patient Condition at Discharge: Stable Plan - Discharge Summary Discharge Rx Participant: Yes New Discharge Prescriptions: Continue Dulaglutide [Trulicity] 3 mg SQ TH DULoxetine HCL [Cymbalta] 20 mg PO BID Albuterol Sulfate [Ventolin HFA] 2 puff INHALATION RT-QID PRN PRN Reason: Shortness Of Breath QUEtiapine [SEROquel] 50 mg PO TID-W/MEALS traZODone HCL [Desyrel] 50 mg PO HS PRN PRN Reason: Insomnia traZODone HCL 150 mg PO HS Divalproex ER [Depakote ER] 500 mg PO BID Losartan [Cozaar] 50 mg PO HS HYDROcodone/APAP 7.5-325MG [[place] 7.5-325] 1 tab PO TID Gabapentin 800 mg PO TID Divalproex ER [Depakote ER] 250 mg PO HS Fluticasone Nasal [place] [Flonase Nasal [place]] 2 spr EA NOSTRIL BID Empagliflozin [Jardiance] 25 mg PO DAILY Celecoxib [CeleBREX] 200 mg PO DAILY QUEtiapine [SEROquel] 400 mg PO HS Discharge Medication List Dulaglutide [Trulicity] 3 mg SQ TH 11/16/22 [History] Albuterol Sulfate [Ventolin HFA] 2 puff INHALATION RT-QID PRN 11/01/24 [History] Celecoxib [CeleBREX] 200 mg PO DAILY 11/01/24 [History] DULoxetine HCL [Cymbalta] 20 mg PO BID 11/01/24 [History] Divalproex ER [Depakote ER] 250 mg PO HS 11/01/24 [History] Divalproex ER [Depakote ER] 500 mg PO BID 11/01/24 [History] Empagliflozin [Jardiance] 25 mg PO DAILY 11/01/24 [History] Fluticasone Nasal [place] [Flonase Nasal [place]] 2 spr EA NOSTRIL BID 11/01/24 [History] Gabapentin 800 mg PO TID 11/01/24 [History] HYDROcodone/APAP 7.5-325MG [[place] 7.5-325] 1 tab PO TID 11/01/24 [History] Losartan [Cozaar] 50 mg PO HS 11/01/24 [History] QUEtiapine [SEROquel] 50 mg PO TID-W/MEALS 11/01/24 [History] QUEtiapine [SEROquel] 400 mg PO HS 11/01/24 [History] traZODone HCL 150 mg PO HS 11/01/24 [History] traZODone HCL [Desyrel] 50 mg PO HS PRN 11/01/24 [History] Follow up Appointment(s)/Referral(s): Vic Menchaca MD [STAFF PHYSICIAN] - 1 Week (Please call and schedule first available appointment) Khris Jasmine DO [Doctor of Osteopathic Medicine] - As Needed Donal Hanna DO [STAFF PHYSICIAN] - 2 Weeks Patient Instructions/Handouts: Dehydration (DC), Acute Kidney Injury (DC), Lumbar Disc Herniation (DC) Activity/Diet/Wound Care/Special Instructions: Activity: As tolerated. Take breaks as needed. Diet: Heart healthy and carb consistent diet. Special Instructions: Take all of your medications as directed and remember to keep all of your doctor's appointments and follow-up as needed. Thank you for allowing us to participate in your care, it was truly a pleasure having you for our patient!!! Discharge Disposition: HOME SELF-CARE
[2024-11-02 15:35] VITALS: BP 117/69; PULSE 75; TEMP 97.8
== END 2024-11-02 15:58 | disposition home or self-care (01) ==
LOC: EC 04:01 → 6NMEDSUR 07:05
PROVIDERS: ADMIT Student in an Organized Health Care Education/Training Program; ATTEND Student in an Organized Health Care Education/Training Program
DX: R55 Syncope and collapse (principal); N17.0 Acute kidney failure with tubular necrosis; E87.20 Acidosis, unspecified; E83.52 Hypercalcemia; E86.0 Dehydration; E11.40 Type 2 diabetes mellitus with diabetic neuropathy, unspecified; E11.65 Type 2 diabetes mellitus with hyperglycemia; I10 Essential (primary) hypertension; F31.9 Bipolar disorder, unspecified; F41.0 Panic disorder [episodic paroxysmal anxiety]; M47.816 Spondylosis without myelopathy or radiculopathy, lumbar region; M47.814 Spondylosis without myelopathy or radiculopathy, thoracic region; M51.24 Other intervertebral disc displacement, thoracic region; M48.04 Spinal stenosis, thoracic region; F17.290 Nicotine dependence, other tobacco product, uncomplicated; Z79.1 Long term (current) use of non-steroidal anti-inflammatories (NSAID); Z79.84 Long term (current) use of oral hypoglycemic drugs; Z79.85 Long-term (current) use of injectable non-insulin antidiabetic drugs; Z79.899 Other long term (current) drug therapy
CPT/HCPCS: 96360; 96372; 99285; 36415; 93005; 85379; 80164; 80053; 80048; 83735 ×2; 84484; 85025; 85027; 85610; 85730; 81003; 80306; 71045; 76770; 72128; 72125; 72131; 70450; G0378 ×2; J1650; 96361